=== PATIENT | female | born 1980 | race Caucasian/White ===

== ENCOUNTER 2018-11-25 09:10 | Emergency (ER) | payer MEDICAID, SELFPAY ==
[2018-11-25 09:11] VITALS: BP 137/82; PULSE 105; RESP 16; TEMP 36.7; O2SAT 97; BMI 30.2
[2018-11-25 09:25] LABS: Bedside Glucose 446 mg/dL (70-110)
[2018-11-25] MEDS: 0.9% Normal Saline 1,000 ML 1000 ML IV (09:34)
[2018-11-25 09:42] LABS: Mucous, Urine 0 SEEN /hpf (<or=2+); White Blood Cells 0 SEEN /hpf (0-5)
[2018-11-25 09:47] LABS: Absolute Neutrophil Count 15.4 X10^3/uL (2.0-7.7); Basophil# 0.04 X10^3/uL; Basophil% 0.2 % (0-1); Eosinophil# 0.01 X10^3/uL; Eosinophils% 0.1 % (0-5); Hematocrit 44.7 % (37-47); Hemoglobin 15.6 g/dl (12.0-15.0); Lymphocyte % 16.7 % (19-41); Mean Corp Hgb Conc 34.9 g/gl (32-36); Mean Corpuscular Volume 88.7 fL (81-99); Mean Platelet Vol. 10.9 fl (6.2-12.0); Monocyte% 2.1 % (0-10); Neutrophil # 15.41 X10^3/uL (2.7-7.7); Neutrophil % 80.6 % (47-70); Platelet Count 303 K/mm3 (150-450); RBC Distribution Width CV 12.2 % (11.6-14.6); RBC Distribution Width SD 39.2 fl (35.1-43.9); Red Blood Count 5.04 M/mm3 (4.2-5.4); White Blood Count 19.1 K/mm3 (4.4-11.0)
[2018-11-25 09:48] LABS: Differential Indicated SCAN CRITERIA MET; POSITIVE COUNT NO; POSITIVE DIFFERENTIAL NO; POSITIVE MORPHOLOGY YES
[2018-11-25 09:51] LABS: Color, Urine Yellow (Yellow); Glucose, Dipstick 1000 mg/dl (Normal); Urine Bilirubin Dipstick Negative (Negative); Urine Clarity Sl Cldy (Clear)
[2018-11-25 09:52] LABS: Ketone-Dipstick 150 mg/dl (Negative); Leukocyte Esterase-Dipstick Negative /ul (Negative); Nitrite-Dipstick Negative (Negative); Occult Blood-Urine Negative /ul (Negative); Protein-Dipstick Negative (Negative); Urine Urobilinogen Normal (Normal)
[2018-11-25 09:54] LABS: Internal QC Validated? YES +Cl - CLEAR BKGD; Pregnancy, Urine Negative Negative
[2018-11-25 09:57] LABS: Bacteria RARE /hpf (None Seen); Red Blood Cells-Urine 0-5 SEEN /hpf (0-5); Squamous Epithelial Cells - UA 0-5 SEEN /hpf (5-10)
--- NOTE | 2018-11-25 10:02 | ED.VISSUMM ---
- ER Visit Summary Date of Service: 11/25/18 Chief Complaint: Hyperglycemia History of Present Illness: The patient is a 37 F who presents the emergency room because she ran out of insulin for her insulin pump last night at 1800 hrs. She states her blood sugar was reading high. She states that her conciliation court judge office has insulin for her to come and get it. She states that she vomited is concerned she is in DKA. Physical Examination: Afebrile vital signs are stable Gen: Well-nourished well-developed Head: Normocephalic atraumatic Eyes: Perrl EOMI ENT: TMs clear no rhinorrhea moist mucous membranes Neck: Supple no lymphadenopathy no JVD nontender CVS: Regular rate rhythm no murmurs normal S1-S2 Respiratory: No distress clear to auscultation bilaterally chest nontender Abdomen: Soft nontender nondistended normal bowel sounds no masses Back: Nontender Extremity: Nontender no edema Skin: Normal color no rash Neuro: alert orientated ?3 CN II-XII intact normal strength sensation reflexes gait cerebellar Psych: Normal affect normal mood Test Results: Blood sugar 458. CO2 of 17. Anion gap is 15. White blood cell count 19. Ketones small. Emergency Department Course and Treatment: Patient received IV fluids and insulin. She also received Zofran for nausea vomiting. We have given a total of 2 L of IV fluids as well as 20 units of insulin. She is tolerating p.o. fluids. She is anxious to get to her [facility]ciliation court judge office to get her insulin. At this point she does not have an anion gap. She is tolerating p.o. Her blood sugar is down. Think is very reasonable to send her to get her insulin for her pump. She is comfortable with this plan and will be drinking water for the rest of the day. Return if worsening or concerns. Impression: 1. Diabetic ketoacidosis This note was generated with [employer] dictation software. It may contain incorrect words, spelling, and punctuation that were not noted in review of the chart prior to signing ED Disposition - Plan for ED Patient: Disposition: Home or Assisted Living Instructions: ED Hyperglycemia Diabetic Prescriptions: Ondansetron [Zofran Odt] 4 mg PO Q6H PRN PRN #10 tab PRN Reason: Nausea Additional Instructions: Go to your conciliation court judge office today. Drink plenty of water today Monitor your blood sugars closely
[2018-11-25 10:08] LABS: ALB/GLOB Ratio 1.1 RATIO (0.9-2.4); AST(SGOT) 14 U/L (15-37); Alanine Aminotransfer ALT/SGPT 23 U/L (13-56); Albumin, Serum 4.2 g/dL (3.2-5.0); Alkaline Phosphatase 88 U/L (45-117); Anion Gap 15 (5-15); BUN 22 mg/dL (7-18); BUN/Creat Ratio 21.6 RATIO (10-20); Calcium,Total 8.9 mg/dL (8.5-10.1); Chloride 99 mmol/L (98-107); Creatinine, Serum 1.02 mg/dL (0.55-1.02); EST Glomerular Filtration Rate 65 mL/min (>60); Est Glom Filt Rate - Afr Amer 78 mL/min (>60); Estimated Creatinine Clearance 59.73 ml/min; Globulin 3.8 g/dL (2.2-4.2); Glucose 458 mg/dL (74-106); Potassium 4.4 mmol/L (3.5-5.1); Sodium Level 131 mmol/L (136-145)
--- NOTE | 2018-11-25 10:08 | ED.RN ---
LAB CALL WITH CRITICAL RESULT GLUCOSE OF 458. VERBALLY REPORTED TO DR. VARGAS AND KENYA VENEGAS.
[2018-11-25] MEDS: 0.9% Normal Saline 1,000 ML 999 ML IV (10:27)
[2018-11-25] MEDS: Ondansetron 4 MG/2 ML Vial IV (10:27)
[2018-11-25 10:41] LABS: Bedside Glucose 452 mg/dL (70-110)
[2018-11-25 11:57] VITALS: BP 104/59; PULSE 85; RESP 16; O2SAT 96
[2018-11-25 12:01] LABS: Bedside Glucose 324 mg/dL (70-110)
[2018-11-25 13:06] VITALS: BP 108/65; PULSE 77; RESP 18; O2SAT 99
[2018-11-25 13:06] LABS: Bedside Glucose 220 mg/dL (70-110)
== END 2018-11-25 13:07 | disposition home or self-care (01) ==
PROVIDERS: Emergency Provider Emergency Medicine; PCP Family Medicine
DX: E10.10 Type 1 diabetes mellitus with ketoacidosis without coma (principal); I10 Essential (primary) hypertension; E78.00 Pure hypercholesterolemia, unspecified; J45.909 Unspecified asthma, uncomplicated; Z72.0 Tobacco use; Z79.4 Long term (current) use of insulin
CPT/HCPCS: 80053; 81001; 81025; 82009; 82962; 85025; 99284; J7030; A4216; J2405

== ENCOUNTER 2020-10-20 10:03 | Emergency (ER) | payer MEDICAID, SELFPAY ==
[2020-10-20 10:04] VITALS: BP 139/100; PULSE 77; RESP 16; TEMP 36.6; O2SAT 99; BMI 24.7
--- NOTE | 2020-10-20 10:12 | RAD_ITS ---
STUDY: X-RAY - RIGHT HAND REASON FOR EXAM: Female, 39 years old. right thumb pain after a fall TECHNIQUE: 3 view(s) of the hand. COMPARISON: None. FINDINGS: No acute fracture, dislocation or osseous destruction. No significant joint space narrowing. No significant productive changes. No significant soft tissue swelling. RAD/Hand Min 3 Views IMPRESSION: Right thumb/hand intact Electronically Signed: Alec Aguillon DO at 10:35 EST Tel , Service support ,
[2020-10-20] MEDS: Acetaminophen 500 MG Tablet 1000 MG PO (10:35)
--- NOTE | 2020-10-20 10:42 | ED.DCSUM_ITS ---
- ER Visit Summary Date of Service: 10/20/20 Chief Complaint: Right thumb injury History of Present Illness: The patient is a 39 F who had a mechanical fall yesterday. She injured her right thumb. Concern for fracture, dislocation, or strain. No other injuries or complaints. No other associated symptoms. Pain is severe. Physical Examination: Diffuse right thumb tenderness with light touch. Skin intact. Neurovascular intact. No redness, warmth, or significant swelling noted. Test Results: X-rays reviewed by the radiologist and myself showed no acute abnormalities. No fracture or dislocation. Emergency Department Course and Treatment: Patient had a mechanical fall and complains of right thumb pain. No other injuries. X-rays obtained and were unremarkable. Treated with Tylenol. Will place a Velcro splint, symptomatic care at home. Outpatient follow-up. Treatment Plan: Velcro thumb spica splint, rest, ice, elevate, [id number] remedies for pain. Outpatient follow-up as needed. Disposition: Discharge Impression:. Right thumb pain This note was generated with [employer] dictation software. It may contain incorrect words, spelling, and punctuation that were not noted in review of the chart prior to signing ED Disposition - Plan for ED Patient: Instructions: ED Finger Sprain Referrals: Kim Jo [NON-STAFF] -
[2020-10-20 11:07] VITALS: PULSE 72; RESP 16; O2SAT 100
== END 2020-10-20 11:08 | disposition home or self-care (01) ==
PROVIDERS: Emergency Provider Emergency Medicine; PCP Family Medicine
DX: M79.644 Pain in right finger(s) (principal); W19.XXXA Unspecified fall, initial encounter; Y93.9 Activity, unspecified; Y92.9 Unspecified place or not applicable; Y99.9 Unspecified external cause status
CPT/HCPCS: 73130; 99283

== ENCOUNTER 2020-11-18 19:28 | Emergency (ER) | payer MEDICAID, SELFPAY ==
[2020-11-18 19:29] VITALS: BP 132/80; PULSE 74; RESP 18; TEMP 36.6; O2SAT 99; BMI 25.2
[2020-11-18] MEDS: 0.9% Normal Saline 1,000 ML 999 ML IV (20:13)
[2020-11-18] MEDS: Ketorolac 15 MG/ML Vial IV (20:14)
[2020-11-18] MEDS: Metoclopramide 10 MG/2 ML Vial IV (20:14)
[2020-11-18] MEDS: DiphenhydrAMINE 50 MG/ML Syringe 25 MG IV (20:14)
--- NOTE | 2020-11-18 21:46 | ED.VIS.GEN ---
History of Present Illness Chief Complaint: Headache Narrative: Patient presents with a headache. She has a history of migraines. This feels the same. Last headache was over a year ago however this is the exact same as all her prior headaches. She has no fever chills cough or congestion. No chest pain or shortness of breath. No vision changes. There is some photophobia. Past medical history: Prior migraines Medications: Reviewed Social history: Noncontributory Review of systems: All systems negative except as indicated General: Denies: Fever Eyes: Denies: Visual changes - bilaterally ENT: Denies: Rhinorrhea, Sore throat Cardiovascular: Denies: Chest pain Respiratory: Denies: Dyspnea, Cough Gastrointestinal: Denies: Abdominal pain, Nausea, Vomiting Genitourinary: Denies: Dysuria Musculoskeletal: Denies: Myalgias Skin: Denies: Rash Neurological: Headache as in HPI. No focal deficit no sensory deficits. No confusion. Psych: Reports: negative Hematologic: Denies: Easy bruising, Easy bleeding Physical exam General: She does appear in some distress. Head: Normocephalic, Atraumatic Eyes: Conjunctiva not pale. Pupils are reactive. ENT: Moist mucous membranes Neck: Supple, Nontender, No lymphadenopathy Cardiovascular: Regular rate, Regular rhythm Respiratory: No distress, CTA bilaterally Abdomen: Soft, Nontender, Nondistended Back: Nontender, Normal Inspection. Negative for: CVA tenderness Extremities: Nontender, No edema Skin: Normal color, No rash Neurological: Alert, Normal Strength, Normal Sensation Past Medical History - Allergies and Home Meds Allergies/Adverse Reactions: Allergies latex Allergy (Verified 11/18/20 19:32) Hives naproxen Allergy (Verified 11/18/20 19:32) Hives oseltamivir phosphate [From Tamiflu] Adverse Reaction (Verified 11/18/20 19:32) Other FLU SYSTEMS WORSEN WHEN ON THIS MED Primary Care Physician: Darlene Bass MD [Primary Care Provider] - Surgical History: hysterectomy, tonsillectomy, - - T+A, BL ear tubes, insulin pump placement, uterine ablation, BLTL. recent cholecyst[facility] at [facility] Smoking Status: Current every day smoker - Family History Maternal Family History: Reports: Heart Disease Paternal Family History: Reports: Heart Disease Physical Exam Vital Signs/Narrative: Vital Signs Temp Pulse Resp BP Pulse Ox 11/18/20 19:29 97.9 F 74 18 132/80 H 99 Diagnostic/Tx/Re-eval - Medical Decision Making Patient was given a migraine cocktail. She significantly improved. This is gradual onset of chronic recurrent cephalgia with a normal neurological exam no imaging is needed. Patient will be discharged in stable condition. ED Disposition - Plan for ED Patient: Disposition: Home or Assisted Living Diagnosis: Migraine Instructions: ED Headache Unspecified Referrals: Darlene Bass MD [Primary Care Provider] -
== END 2020-11-18 21:54 | disposition home or self-care (01) ==
PROVIDERS: Emergency Provider Emergency Medicine; PCP Family Medicine
DX: G43.909 Migraine, unspecified, not intractable, without status migrainosus (principal); F17.200 Nicotine dependence, unspecified, uncomplicated; Z79.4 Long term (current) use of insulin; Z82.49 Family history of ischemic heart disease and other diseases of the circulatory system; Z90.710 Acquired absence of both cervix and uterus; Z91.040 Latex allergy status; Z96.41 Presence of insulin pump (external) (internal)
CPT/HCPCS: 96361; 96374; 96375; 99284; J7030; A4216

== ENCOUNTER 2020-12-12 19:17 | Observation (INO) | payer MEDICAID, SELFPAY ==
[2020-12-12] VITALS (8 sets, daily range): BP systolic 109–128; BP diastolic 65–78; PULSE 73–106; RESP 14–18; TEMP 36.6; O2SAT 96–100; BMI 24.7; BMI 25.0
--- NOTE | 2020-12-12 19:32 | EX.ED.DYSGE1 ---
HPI History of Present Illness Chief Complaint: Hyperglycemia Informant: patient Narrative Narrative: 40-year-old female with history of type 1 diabetes on insulin pump states that she has had vomiting since noon and is worried that she is in DKA. She tells me that Sunday was her birthday so her kids took her to a [employer] restaurant where she had a graeme and had a celebratory tequila shot. When she woke on Sunday she had experienced diarrhea and then today around noon began to have vomiting. She states this afternoon her blood sugars were in the 300s. She is left her insulin pump on. She states she cannot control her vomiting. No fevers. No rashes. No blood in vomit or stool. No further diarrhea today PFSH PFSH Medical History (Updated 12/12/20 @ 21:[address] Praveen Quintana DO) Asthma Bipolar disorder Diabetes Hypertension Home Medications Humalog U-100 Insulin 0 unit SQ UD 01/19/16 [History Last Taken Unknown] pravastatin 40 mg PO QHS 04/13/16 [History Last Taken Unknown] lisinopril 1 tab PO DAILY 01/06/17 [History Last Taken Unknown] albuterol sulfate 1 - 2 puff INHALATION Q6H PRN 10/20/20 [History Last Taken Unknown] Allergy/AdvReac Type Severity Reaction Status Date / Time latex Allergy Hives Verified 12/12/20 19:20 naproxen Allergy Hives Verified 12/12/20 19:20 oseltamivir phosphate AdvReac Other Verified 12/12/20 19:20 [From Tamiflu] no surgical history (Noncontributory) Social History (Updated 12/12/20 @ 19:[address] Pravene Quintana DO) Smoking Status: Current every day smoker alcohol intake: current alcohol intake frequency: holidays/special occasions only ROS ROS ED Constitutional Constitutional ED: Denies chills or weight loss Eyes Eyes: Denies change in vision or diplopia ENT ENT ED: Denies ear pain, rhinorrhea or sore throat Cardiovascular Cardiovascular: Denies chest pain, orthopnea, palpitations or racing heartbeat Respiratory/Chest Respiratory/Chest: Denies cough, dyspnea or orthopnea Gastrointestinal Gastrointestinal: Reports diarrhea, nausea and vomiting; Denies abdominal pain Genitourinary Genitourinary ED: Denies dysuria, hematuria or urinary frequency Musculoskeletal Musculoskeletal: Denies arthralgias or myalgias Integumentary Denies abscess or rash Neurologic Neurologic: Denies headache(s) or weakness Psychiatric Psychiatric: Denies anxiety, depression, suicidal ideation or suicidal thoughts Endocrine Endocrinology: Denies polydipsia, polyphagia or polyuria Allergic/Immunologic Allergic/Immunologic ED: Denies mouth swelling, tongue swelling or urticaria EXAM Physical Exam Const Vital Signs: 12/12/20 19:19 12/12/20 19:24 12/12/20 21:11 Temperature 97.9 F Temperature Source Temporal Pulse Rate 106 H 78 Respiratory Rate 18 16 Respiratory Effort Normal Non-Labored Respiratory Pattern Normal Blood Pressure 113/66 122/70 H Blood Pressure Mean 81 87 Pulse Ox 98 98 Oxygen Delivery Method Room Air Room Air Positive well nourished and well developed Constitutional Narrative: Patient is vomiting General Appearance ED: well developed HEENT Reports normocephalic, head/scalp atraumatic and moist mucous membranes Eyes PERRL and EOMs intact bilaterally Neck no lymphadenopathy, supple and no JVD Resp normal respiratory effort and clear to auscultation bilaterally Cardio regular rate, regular rhythm and no murmurs GI normal to inspection, nondistended, normoactive bowel sounds and non-tender Palpation: soft Back/Spine no CVA tenderness and normal ROM Extremity normal to inspection General Extremety ED: Negative for edema General Extremity: Negative for edema Neuro oriented x3 and CN's II-XII intact bilaterally Sensorium / Orientation: alert Motor Exam: strength 5/5 throughout Psych mental status grossly normal Mood & Affect: Negative for depressed or tearful Skin no rashes or lesions noted and no wounds MDM MDM MDM Narrative Medical decision making narrative: Patient received IV fluids and Zofran. Her white count returns at 14.2. Glucose 590 total bilirubin of 1.4. Lipase 100. Moderate acetone in blood. Urinalysis shows no overt infection. There is ketones and glucose. Patient's had no further vomiting. She received a total of 2 L of IV fluids and was started on the insulin drip. Plan will be admission into the ICU. Lab Data Labs: Laboratory Results - last 24 hr 12/12/20 12/12/20 12/12/20 19:43 19:43 19:43 WBC 14.2 H RBC 4.55 Hgb 13.9 Hct 41.6 MCV 91.4 MCH 30.5 MCHC 33.4 RDW Std Deviation 40.4 RDW Coeff of Kenan 12.0 Plt Count 339 MPV 10.8 Immature Gran % (Auto) 0.600 Neut % (Auto) 78.9 H Lymph % (Auto) 14.9 L [place] % (Auto) 4.9 Eos % (Auto) 0.1 Baso % (Auto) 0.6 Absolute Neuts (auto) 11.2 H Absolute Lymphs (auto) 2.12 Nucleated RBC % 0 Sodium 130 L Potassium 4.3 Chloride 97 L Carbon Dioxide 14.0 L Anion Gap 19 H BUN 18 Creatinine 1.02 Estim Creat Clear Calc 57.99 Est GFR (MDRD) Af Amer 77 Est GFR (MDRD) Non-Af 64 BUN/Creatinine Ratio 17.6 Glucose 590 H* Calcium 8.7 Total Bilirubin 1.40 H AST 18 ALT 28 Alkaline Phosphatase 72 Total Protein 7.5 Albumin 4.0 Globulin 3.5 Albumin/Globulin Ratio 1.1 Lipase 100 Urine Color Urine Clarity Urine pH Ur Specific [place] Urine Protein Urine Glucose (UA) Urine Ketones Urine Occult Blood Urine Nitrite Urine Bilirubin Urine Urobilinogen Ur Leukocyte Esterase Urine RBC Urine WBC Ur Squamous Epith Cells Urine Bacteria Urine Mucus Acetone Level MODERATE H 12/12/20 20:15 WBC RBC Hgb Hct MCV MCH MCHC RDW Std Deviation RDW Coeff of Kenan Plt Count MPV Immature Gran % (Auto) Neut % (Auto) Lymph % (Auto) Ralls % (Auto) Eos % (Auto) Baso % (Auto) Absolute Neuts (auto) Absolute Lymphs (auto) Nucleated RBC % Sodium Potassium Chloride Carbon Dioxide Anion Gap BUN Creatinine Estim Creat Clear Calc Est GFR (MDRD) Af Amer Est GFR (MDRD) Non-Af BUN/Creatinine Ratio Glucose Calcium Total Bilirubin AST ALT Alkaline Phosphatase Total Protein Albumin Globulin Albumin/Globulin Ratio Lipase Urine Color Straw Urine Clarity Clear Urine pH 5.0 Ur Specific [place] 1.015 Urine Protein Negative Urine Glucose (UA) 1000 H Urine Ketones 150 A* Urine Occult Blood Negative Urine Nitrite Negative Urine Bilirubin Negative Urine Urobilinogen Normal Ur Leukocyte Esterase Negative Urine RBC 0-5 SEEN Urine WBC 0-5 SEEN Ur Squamous Epith Cells 0-5 SEEN Urine Bacteria 0 SEEN Urine Mucus 0 SEEN Acetone Level Critical Care Time Critical Care Time: Yes Critical care time (excluding procedures): 30-74 minutes (35 minutes), Discussing w/Patient &/or 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
[2020-12-12] MEDS: 0.9% Normal Saline 1,000 ML 1000 ML IV ×2 (19:46→21:07)
[2020-12-12] MEDS: Ondansetron 4 MG/2 ML Vial IV (19:47)
[2020-12-12 19:50] LABS: Absolute Lymphocyte Count 2.12 X10^3/uL (0.83-4.51); Absolute Neutrophil Count 11.2 X10^3/uL (2.0-7.7); Basophil# 0.08 X10^3/uL; Basophil% 0.6 % (0-1); Eosinophil# 0.01 X10^3/uL; Eosinophils% 0.1 % (0-5); Hematocrit 41.6 % (37-47); Hemoglobin 13.9 g/dL (12.0-15.0); Lymphocyte # 2.12 X10^3/ul (0.83-4.51); Lymphocyte % 14.9 % (19-41); Mean Corp Hgb Conc 33.4 g/dL (32-36); Mean Corpuscular Hgb 30.5 pg (27.0-32.0); Mean Corpuscular Volume 91.4 fL (81-99); Mean Platelet Vol. 10.8 fl (6.2-12.0); Monocyte# 0.69 X10^3/uL; Monocyte% 4.9 % (0-10); NRBC Flagged by Analyzer 0 % (0-5); Neutrophil # 11.22 X10^3/uL (2.7-7.7); Neutrophil % 78.9 % (47-70); Platelet Count 339 K/mm3 (150-450); RBC Distribution Width SD 40.4 fl (35.1-43.9); Red Blood Count 4.55 M/mm3 (4.2-5.4); White Blood Count 14.2 K/mm3 (4.4-11.0)
[2020-12-12 20:11] LABS: ALB/GLOB Ratio 1.1 RATIO (0.9-2.4); AST(SGOT) 18 U/L (15-37); Alanine Aminotransfer ALT/SGPT 28 U/L (13-56); Alkaline Phosphatase 72 U/L (45-117); Anion Gap 19 (5-15); BUN 18 mg/dL (7-18); BUN/Creat Ratio 17.6 RATIO (10-20); Calcium,Total 8.7 mg/dL (8.5-10.1); Chloride 97 mmol/L (98-107); Creatinine, Serum 1.02 mg/dL (0.55-1.02); EST Glomerular Filtration Rate 64 mL/min (>60); Est Glom Filt Rate - Afr Amer 77 mL/min (>60); Estimated Creatinine Clearance 57.99 ml/min; Globulin 3.5 g/dL (2.2-4.2); Glucose 590 mg/dL (74-106); Lipase 100 U/L (73-393); Potassium 4.3 mmol/L (3.5-5.1); Protein, Total 7.5 g/dL (6.4-8.2); Sodium Level 130 mmol/L (136-145)
[2020-12-12 20:21] LABS: Bacteria 0 SEEN /hpf (None Seen); Mucous, Urine 0 SEEN /hpf (<or=2+)
[2020-12-12 20:22] LABS: Color, Urine Straw (Yellow); Glucose, Dipstick 1000 mg/dl (Normal); Leukocyte Esterase-Dipstick Negative /ul (Negative); Nitrite-Dipstick Negative (Negative); Occult Blood-Urine Negative /ul (Negative); Protein-Dipstick Negative (Negative); Specific Gravity, Urine 1.015 (1.002-1.030); Urine Bilirubin Dipstick Negative (Negative); Urine Clarity Clear (Clear); Urine Urobilinogen Normal (Normal)
[2020-12-12 20:27] LABS: Ketone-Dipstick 150 mg/dl (Negative)
[2020-12-12 20:33] LABS: Red Blood Cells-Urine 0-5 SEEN /hpf (0-5); Squamous Epithelial Cells - UA 0-5 SEEN /hpf (5-10); White Blood Cells 0-5 SEEN /hpf (0-5)
--- NOTE | 2020-12-12 21:13 | ED.RN ---
PT DECLINED INSERTION OF SECOND IV AT THIS TIME
[2020-12-12 21:25] LABS: Bedside Glucose > 500 mg/dL (70-110)
[2020-12-12 22:30] LABS: Bedside Glucose 359 mg/dL (70-110)
--- NOTE | 2020-12-12 22:31 | PCM.HP.STD ---
HPI - General General Date of Admission: 12/12/20 Chief Complaint: Nausea and vomiting HPI Narrative MATHEUS DODSNO, is a 40 F with a significant history of bipolar disorder; diabetes mellitus; hypertension; and hyperlipidemia who presents to the emergency department with persistent nausea and vomiting that started on the same day of presentation. Associated with her symptoms is abdominal pain that she attributes to retching. Further, patient has been having polyuria and polydipsia. She had a birthday on [birth year]. On her birthday her kids took her to [employer] restaurant where she at chicken quesadilla and rice. Also she had tequila and graeme shot. The next day after her birthday celebration she developed abdominal ache and diarrhea. The diarrhea has since resolved. At the emergency department she was found to have elevated glucose; acidemia and with ketones in her urine. [facility] Medical History (Updated 12/12/20 @ 23:[address] Ismael Colbert MD) Anxiety Asthma Bipolar disorder Depression Diabetes Hypertension Migraines Substance abuse Home Medications Humalog U-100 Insulin 0 unit SQ UD 01/19/16 [History Last Taken Unknown] pravastatin 40 mg PO QHS 04/13/16 [History Last Taken Unknown] lisinopril 1 tab PO DAILY 01/06/17 [History Last Taken Unknown] albuterol sulfate 1 - 2 puff INHALATION Q6H PRN 10/20/20 [History Last Taken Unknown] Allergy/AdvReac Type Severity Reaction Status Date / Time latex Allergy Hives Verified 12/12/20 19:20 naproxen Allergy Hives Verified 12/12/20 19:20 oseltamivir phosphate AdvReac Other Verified 12/12/20 19:20 [From Tamiflu] Family History (Updated 12/12/20 @ 23:[address] Ismael Colbert MD) Other Diabetes Leukemia Thyroid disorder Surgical History (Updated 12/12/20 @ 23:[address] sImael Colbert MD) History of partial hysterectomy Social History (Updated 12/12/20 @ 19:[address] Praveen Quintana DO) Smoking Status: Current every day smoker alcohol intake: current alcohol intake frequency: holidays/special occasions only ROS ROS Narrative 12 point review of system is negative except as stated in HPI. Vital Signs Vital Signs Vital Signs: 12/12/20 19:19 12/12/20 19:24 12/12/20 21:11 Temperature 97.9 F Temperature Source Temporal Pulse Rate 106 H 78 Respiratory Rate 18 16 Respiratory Effort Normal Non-Labored Respiratory Pattern Normal Blood Pressure 113/66 122/70 H Blood Pressure Mean 81 87 Pulse Ox 98 98 Oxygen Delivery Method Room Air Room Air 12/12/20 21:48 Temperature 97.8 F Temperature Source Temporal Pulse Rate 73 Respiratory Rate 14 Respiratory Effort Respiratory Pattern Blood Pressure 128/71 H Blood Pressure Mean 90 Pulse Ox 96 Oxygen Delivery Method Room Air Physical Exam Narrative Alert and oriented x3 Nontraumatic; normocephalic Lung clear to auscultate Heart sounds S1-S2. No murmur, gallop or rubs. Abdomen bowel sounds present soft, nontender nondistended Extremity without edema cyanosis or clubbing. Lab / Micro Data Result Diagrams: 12/12/20 19:43 12/12/20 19:43 Labs: Laboratory Results - last 24 hr 12/12/20 12/12/20 12/12/20 19:43 19:43 19:43 WBC 14.2 H RBC 4.55 Hgb 13.9 Hct 41.6 MCV 91.4 MCH 30.5 MCHC 33.4 RDW Std Deviation 40.4 RDW Coeff of Kenan 12.0 Plt Count 339 MPV 10.8 Immature Gran % (Auto) 0.600 Neut % (Auto) 78.9 H Lymph % (Auto) 14.9 L [place] % (Auto) 4.9 Eos % (Auto) 0.1 Baso % (Auto) 0.6 Absolute Neuts (auto) 11.2 H Absolute Lymphs (auto) 2.12 Nucleated RBC % 0 Sodium 130 L Potassium 4.3 Chloride 97 L Carbon Dioxide 14.0 L Anion Gap 19 H BUN 18 Creatinine 1.02 Estim Creat Clear Calc 57.99 Est GFR (MDRD) Af Amer 77 Est GFR (MDRD) Non-Af 64 BUN/Creatinine Ratio 17.6 Glucose 590 H* Calcium 8.7 Total Bilirubin 1.40 H AST 18 ALT 28 Alkaline Phosphatase 72 Total Protein 7.5 Albumin 4.0 Globulin 3.5 Albumin/Globulin Ratio 1.1 Lipase 100 Urine Color Urine Clarity Urine pH Ur Specific [place] Urine Protein Urine Glucose (UA) Urine Ketones Urine Occult Blood Urine Nitrite Urine Bilirubin Urine Urobilinogen Ur Leukocyte Esterase Urine RBC Urine WBC Ur Squamous Epith Cells Urine Bacteria Urine Mucus Acetone Level MODERATE H POC Glucose 12/12/20 12/12/20 12/12/20 20:15 21:04 22:04 WBC RBC Hgb Hct MCV MCH MCHC RDW Std Deviation RDW Coeff of Kenan Plt Count MPV Immature Gran % (Auto) Neut % (Auto) Lymph % (Auto) [place] % (Auto) Eos % (Auto) Baso % (Auto) Absolute Neuts (auto) Absolute Lymphs (auto) Nucleated RBC % Sodium Potassium Chloride Carbon Dioxide Anion Gap BUN Creatinine Estim Creat Clear Calc Est GFR (MDRD) Af Amer Est GFR (MDRD) Non-Af BUN/Creatinine Ratio Glucose Calcium Total Bilirubin AST ALT Alkaline Phosphatase Total Protein Albumin Globulin Albumin/Globulin Ratio Lipase Urine Color Straw Urine Clarity Clear Urine pH 5.0 Ur Specific [place] 1.015 Urine Protein Negative Urine Glucose (UA) 1000 H Urine Ketones 150 A* Urine Occult Blood Negative Urine Nitrite Negative Urine Bilirubin Negative Urine Urobilinogen Normal Ur Leukocyte Esterase Negative Urine RBC 0-5 SEEN Urine WBC 0-5 SEEN Ur Squamous Epith Cells 0-5 SEEN Urine Bacteria 0 SEEN Urine Mucus 0 SEEN Acetone Level POC Glucose > 500 H* 359 H Assessment & Plan Assessment/Plan (1) DKA, type 1: Status: Acute Qualifiers: Diabetes mellitus complication detail: without coma Qualified Code(s): E10.10 - Type 1 diabetes mellitus with ketoacidosis without coma Plan: The patient reports compliance with home pump. Insulin pump was disconnected at the emergency department. Serum glucose: 590 acetone level : Elevated Anion gap of 19 Sodium 130, Corrected sodium 138 Insulin drip started from emergency department; continue Completed IV bolus of normal saline and normal saline infusion Because of potassium of 4.3 we will start patient on half-normal saline with 20 mEq potassium running at 125 mL's per hour. BMP every 4 hours to calculate anion gap. N.p.o. 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 (2) Gastroenteritis: Status: Acute Code(s): K52.9 - Noninfective gastroenteritis and colitis, unspecified Plan: Supportive treatment with IV fluids and antiemetics. (3) Asthma: Status: Chronic Code(s): J45.909 - Unspecified asthma, uncomplicated Qualifiers: Asthma severity: moderate Asthma persistence: unspecified Asthma complication type: unspecified Qualified Code(s): J45.909 - Unspecified asthma, uncomplicated Plan: Stable as needed albuterol inhalation continued. (4) Hypertension: Status: Chronic Code(s): I10 - Essential (primary) hypertension Qualifiers: Hypertension type: essential hypertension Qualified Code(s): I10 - Essential (primary) hypertension Plan: Stable. Hold home lisinopril while n.p.o. As needed hydralazine ordered. Trend blood pressure and adjust blood pressure medications as necessary. Visit Charges Inpatient E&M: 15835 Init Hosp L3
[2020-12-12 23:16] LABS: Bedside Glucose 254 mg/dL (70-110)
[2020-12-13] VITALS (17 sets, daily range): BP systolic 86–111; BP diastolic 42–78; PULSE 58–78; RESP 15–22; TEMP 36.6–36.8; O2SAT 97–100
[2020-12-13 00:11] LABS: Hemoglobin A1c 9.9 % (3.8-5.6)
[2020-12-13 00:16] LABS: Bedside Glucose 206 mg/dL (70-110)
[2020-12-13 00:31] LABS: Anion Gap 9 (5-15); BUN 15 mg/dL (7-18); BUN/Creat Ratio 19.9 RATIO (10-20); Calcium,Total 7.5 mg/dL (8.5-10.1); Chloride 110 mmol/L (98-107); Creatinine, Serum 0.75 mg/dL (0.55-1.02); EST Glomerular Filtration Rate 91 mL/min (>60); Est Glom Filt Rate - Afr Amer 110 mL/min (>60); Estimated Creatinine Clearance 78.86 ml/min; Glucose 219 mg/dL (74-106); Sodium Level 139 mmol/L (136-145)
[2020-12-13 01:11] LABS: Bedside Glucose 199 mg/dL (70-110)
[2020-12-13 03:06] LABS: Bedside Glucose 141 mg/dL (70-110)
[2020-12-13] MEDS: Dext 5%-0.45% NS 1,000 ML 150 ML IV (03:15)
[2020-12-13 04:18] LABS: Absolute Lymphocyte Count 3.41 X10^3/uL (0.83-4.51); Absolute Neutrophil Count 7.1 X10^3/uL (2.0-7.7); Basophil# 0.05 X10^3/uL; Basophil% 0.4 % (0-1); Eosinophil# 0.02 X10^3/uL; Eosinophils% 0.2 % (0-5); Hematocrit 35.7 % (37-47); Hemoglobin 11.8 g/dL (12.0-15.0); Lymphocyte # 3.41 X10^3/ul (0.83-4.51); Lymphocyte % 30.2 % (19-41); Mean Corp Hgb Conc 33.1 g/dL (32-36); Mean Corpuscular Hgb 30.6 pg (27.0-32.0); Mean Corpuscular Volume 92.5 fL (81-99); Mean Platelet Vol. 10.2 fl (6.2-12.0); Monocyte# 0.73 X10^3/uL; Monocyte% 6.5 % (0-10); NRBC Flagged by Analyzer 0 % (0-5); Neutrophil # 7.05 X10^3/uL (2.7-7.7); Neutrophil % 62.3 % (47-70); Platelet Count 286 K/mm3 (150-450); RBC Distribution Width CV 11.9 % (11.6-14.6); RBC Distribution Width SD 40.5 fl (35.1-43.9); Red Blood Count 3.86 M/mm3 (4.2-5.4); White Blood Count 11.3 K/mm3 (4.4-11.0)
[2020-12-13 04:20] LABS: Bedside Glucose 124 mg/dL (70-110)
[2020-12-13 04:52] LABS: Anion Gap 6 (5-15); BUN 14 mg/dL (7-18); BUN/Creat Ratio 24.3 RATIO (10-20); Calcium,Total 7.5 mg/dL (8.5-10.1); Chloride 111 mmol/L (98-107); Creatinine, Serum 0.58 mg/dL (0.55-1.02); EST Glomerular Filtration Rate 124 mL/min (>60); Est Glom Filt Rate - Afr Amer 150 mL/min (>60); Estimated Creatinine Clearance 101.98 ml/min; Glucose 121 mg/dL (74-106); Potassium 3.9 mmol/L (3.5-5.1); Sodium Level 140 mmol/L (136-145)
[2020-12-13 05:11] LABS: Bedside Glucose 131 mg/dL (70-110)
--- NOTE | 2020-12-13 05:20 | NURSING ---
Insulin gtt DC'd. Pt. resumed home insulin pump at this time. Snack given to pt.
--- NOTE | 2020-12-13 07:39 | PN.HOSP_ITS ---
Objective Data Objective Data Vital Signs: Vital Signs Temp Pulse Resp BP Pulse Ox 98 F 68 19 H 103/66 98 12/13/20 04:00 12/13/20 07:00 12/13/20 07:00 12/13/20 07:00 12/13/20 07:00 Oxygen Delivery Method Room Air Weight: 138 lb 3.2 oz Body Mass Index (BMI) 25.0 Finger Stick Blood Glucose 131 Intake & Output: Intake and Output for Last 24 Hours 12/11/20 12/12/20 12/13/20 23:59 23:59 23:59 Intake Total 1107.44 / 1107.44 Output Total 500 / 500 Balance 607.44 / 607.44 Lab / Micro Data Result Diagrams: 12/13/20 04:10 12/13/20 04:10 Labs: Laboratory Results - last 24 hr 12/12/20 12/12/20 12/12/20 19:43 19:43 19:43 WBC 14.2 H RBC 4.55 Hgb 13.9 Hct 41.6 MCV 91.4 MCH 30.5 MCHC 33.4 RDW Std Deviation 40.4 RDW Coeff of Kenan 12.0 Plt Count 339 MPV 10.8 Immature Gran % (Auto) 0.600 Neut % (Auto) 78.9 H Lymph % (Auto) 14.9 L [place] % (Auto) 4.9 Eos % (Auto) 0.1 Baso % (Auto) 0.6 Absolute Neuts (auto) 11.2 H Absolute Lymphs (auto) 2.12 Nucleated RBC % 0 Sodium 130 L Potassium 4.3 Chloride 97 L Carbon Dioxide 14.0 L Anion Gap 19 H BUN 18 Creatinine 1.02 Estim Creat Clear Calc 57.99 Est GFR (MDRD) Af Amer 77 Est GFR (MDRD) Non-Af 64 BUN/Creatinine Ratio 17.6 Glucose 590 H* Hemoglobin A1c Calcium 8.7 Total Bilirubin 1.40 H AST 18 ALT 28 Alkaline Phosphatase 72 Total Protein 7.5 Albumin 4.0 Globulin 3.5 Albumin/Globulin Ratio 1.1 Lipase 100 Urine Color Urine Clarity Urine pH Ur Specific [place] Urine Protein Urine Glucose (UA) Urine Ketones Urine Occult Blood Urine Nitrite Urine Bilirubin Urine Urobilinogen Ur Leukocyte Esterase Urine RBC Urine WBC Ur Squamous Epith Cells Urine Bacteria Urine Mucus Acetone Level MODERATE H POC Glucose 12/12/20 12/12/20 12/12/20 19:43 20:15 21:04 WBC RBC Hgb Hct MCV MCH MCHC RDW Std Deviation RDW Coeff of Kenan Plt Count MPV Immature Gran % (Auto) Neut % (Auto) Lymph % (Auto) [place] % (Auto) Eos % (Auto) Baso % (Auto) Absolute Neuts (auto) Absolute Lymphs (auto) Nucleated RBC % Sodium Potassium Chloride Carbon Dioxide Anion Gap BUN Creatinine Estim Creat Clear Calc Est GFR (MDRD) Af Amer Est GFR (MDRD) Non-Af BUN/Creatinine Ratio Glucose Hemoglobin A1c 9.9 H Calcium Total Bilirubin AST ALT Alkaline Phosphatase Total Protein Albumin Globulin Albumin/Globulin Ratio Lipase Urine Color Straw Urine Clarity Clear Urine pH 5.0 Ur Specific [place] 1.015 Urine Protein Negative Urine Glucose (UA) 1000 H Urine Ketones 150 A* Urine Occult Blood Negative Urine Nitrite Negative Urine Bilirubin Negative Urine Urobilinogen Normal Ur Leukocyte Esterase Negative Urine RBC 0-5 SEEN Urine WBC 0-5 SEEN Ur Squamous Epith Cells 0-5 SEEN Urine Bacteria 0 SEEN Urine Mucus 0 SEEN Acetone Level POC Glucose > 500 H* 12/12/20 12/12/20 12/13/20 22:04 23:08 00:05 WBC RBC Hgb Hct MCV MCH MCHC RDW Std Deviation RDW Coeff of Kenan Plt Count MPV Immature Gran % (Auto) Neut % (Auto) Lymph % (Auto) [place] % (Auto) Eos % (Auto) Baso % (Auto) Absolute Neuts (auto) Absolute Lymphs (auto) Nucleated RBC % Sodium 139 Potassium 4.0 Chloride 110 H Carbon Dioxide 20.0 L Anion Gap 9 BUN 15 Creatinine 0.75 Estim Creat Clear Calc 78.86 Est GFR (MDRD) Af Amer 110 Est GFR (MDRD) Non-Af 91 BUN/Creatinine Ratio 19.9 Glucose 219 H Hemoglobin A1c Calcium 7.5 L Total Bilirubin AST ALT Alkaline Phosphatase Total Protein Albumin Globulin Albumin/Globulin Ratio Lipase Urine Color Urine Clarity Urine pH Ur Specific [place] Urine Protein Urine Glucose (UA) Urine Ketones Urine Occult Blood Urine Nitrite Urine Bilirubin Urine Urobilinogen Ur Leukocyte Esterase Urine RBC Urine WBC Ur Squamous Epith Cells Urine Bacteria Urine Mucus Acetone Level POC Glucose 359 H 254 H 12/13/20 12/13/20 12/13/20 00:05 01:07 02:59 WBC RBC Hgb Hct MCV MCH MCHC RDW Std Deviation RDW Coeff of Kenan Plt Count MPV Immature Gran % (Auto) Neut % (Auto) Lymph % (Auto) [place] % (Auto) Eos % (Auto) Baso % (Auto) Absolute Neuts (auto) Absolute Lymphs (auto) Nucleated RBC % Sodium Potassium Chloride Carbon Dioxide Anion Gap BUN Creatinine Estim Creat Clear Calc Est GFR (MDRD) Af Amer Est GFR (MDRD) Non-Af BUN/Creatinine Ratio Glucose Hemoglobin A1c Calcium Total Bilirubin AST ALT Alkaline Phosphatase Total Protein Albumin Globulin Albumin/Globulin Ratio Lipase Urine Color Urine Clarity Urine pH Ur Specific [place] Urine Protein Urine Glucose (UA) Urine Ketones Urine Occult Blood Urine Nitrite Urine Bilirubin Urine Urobilinogen Ur Leukocyte Esterase Urine RBC Urine WBC Ur Squamous Epith Cells Urine Bacteria Urine Mucus Acetone Level POC Glucose 206 H 199 H 141 H 12/13/20 12/13/20 12/13/20 04:10 04:10 04:12 WBC 11.3 H RBC 3.86 L Hgb 11.8 L Hct 35.7 L MCV 92.5 MCH 30.6 MCHC 33.1 RDW Std Deviation 40.5 RDW Coeff of Kenan 11.9 Plt Count 286 MPV 10.2 Immature Gran % (Auto) 0.400 Neut % (Auto) 62.3 Lymph % (Auto) 30.2 [place] % (Auto) 6.5 Eos % (Auto) 0.2 Baso % (Auto) 0.4 Absolute Neuts (auto) 7.1 Absolute Lymphs (auto) 3.41 Nucleated RBC % 0 Sodium 140 Potassium 3.9 Chloride 111 H Carbon Dioxide 23.0 Anion Gap 6 BUN 14 Creatinine 0.58 Estim Creat Clear Calc 101.98 Est GFR (MDRD) Af Amer 150 Est GFR (MDRD) Non-Af 124 BUN/Creatinine Ratio 24.3 H Glucose 121 H Hemoglobin A1c Calcium 7.5 L Total Bilirubin AST ALT Alkaline Phosphatase Total Protein Albumin Globulin Albumin/Globulin Ratio Lipase Urine Color Urine Clarity Urine pH Ur Specific [place] Urine Protein Urine Glucose (UA) Urine Ketones Urine Occult Blood Urine Nitrite Urine Bilirubin Urine Urobilinogen Ur Leukocyte Esterase Urine RBC Urine WBC Ur Squamous Epith Cells Urine Bacteria Urine Mucus Acetone Level POC Glucose 124 H 12/13/20 05:03 WBC RBC Hgb Hct MCV MCH MCHC RDW Std Deviation RDW Coeff of Kenan Plt Count MPV Immature Gran % (Auto) Neut % (Auto) Lymph % (Auto) [place] % (Auto) Eos % (Auto) Baso % (Auto) Absolute Neuts (auto) Absolute Lymphs (auto) Nucleated RBC % Sodium Potassium Chloride Carbon Dioxide Anion Gap BUN Creatinine Estim Creat Clear Calc Est GFR (MDRD) Af Amer Est GFR (MDRD) Non-Af BUN/Creatinine Ratio Glucose Hemoglobin A1c Calcium Total Bilirubin AST ALT Alkaline Phosphatase Total Protein Albumin Globulin Albumin/Globulin Ratio Lipase Urine Color Urine Clarity Urine pH Ur Specific [place] Urine Protein Urine Glucose (UA) Urine Ketones Urine Occult Blood Urine Nitrite Urine Bilirubin Urine Urobilinogen Ur Leukocyte Esterase Urine RBC Urine WBC Ur Squamous Epith Cells Urine Bacteria Urine Mucus Acetone Level POC Glucose 131 H
[2020-12-13 08:41] LABS: Bedside Glucose 218 mg/dL (70-110)
--- NOTE | 2020-12-13 10:22 | PCM.DC.SUM ---
Providers Date of Admission: 12/12/20 Primary Care Physician: Dr. Darlene Bass MD Consultations 12/12/20 23:19 Consult: Chief Optometry Service / Pulmonary Medicine Routine Consulting Provider: Pulmonary Medicine nanci Zelaya Reason for Consult: critical care EMERGENT Consult: No MD Notified: Yes Date Notified:: 12/12/20 Time Notified: 23:19 Method of Notification: Text Reason For Visit: DKA Diagnosis Discharge Diagnosis (1) DKA, type 1: Status: Acute Qualifiers: Diabetes mellitus complication detail: without coma Qualified Code(s): E10.10 - Type 1 diabetes mellitus with ketoacidosis without coma (2) Gastroenteritis: Status: Acute Code(s): K52.9 - Noninfective gastroenteritis and colitis, unspecified (3) Asthma: Status: Chronic Code(s): J45.909 - Unspecified asthma, uncomplicated Qualifiers: Asthma complication type: unspecified Asthma persistence: unspecified Asthma severity: moderate Qualified Code(s): J45.909 - Unspecified asthma, uncomplicated (4) Hypertension: Status: Chronic Code(s): I10 - Essential (primary) hypertension Qualifiers: Hypertension type: essential hypertension Qualified Code(s): I10 - Essential (primary) hypertension Medications at Discharge Home Medications Humalog U-100 Insulin 0 unit SQ UD 01/19/16 pravastatin 40 mg PO QHS 04/13/16 lisinopril 1 tab PO DAILY 01/06/17 albuterol sulfate 1 - 2 puff INHALATION Q6H PRN 10/20/20 Hospital Course Summary of Care Provided Minutes Spent on Discharge: 35 Hospital Course: Patient is a 40-year-old lady with past medical history segment for diabetes mellitus type 1 who presented with nausea and vomiting. Patient assessment was consistent with diabetic ketoacidosis. Patient was admitted to the intensive care unit she was managed with IV fluids correction of electrolytes and serial monitoring of glucose levels as well as electrolyte. Patient DKA did resolve was discharged in a day after her admission. Physical Exam Narrative GENERAL: cooperative HEENT: Atraumatic; EYES; Anicteric, Normal Conjunctiva NECK; supple, normal thyroid, RESPIRATORY: Diminished to auscultation CARDIOVASCULAR: Regular S1 S2, SKIN: No Rash PSYCH; Flat affect ABG / Lab / Microbiology Data Result Diagrams: 12/13/20 04:10 12/13/20 04:10 Laboratory: Laboratory Results - last 24 hr 12/12/20 12/12/20 12/12/20 19:43 19:43 19:43 WBC 14.2 H RBC 4.55 Hgb 13.9 Hct 41.6 MCV 91.4 MCH 30.5 MCHC 33.4 RDW Std Deviation 40.4 RDW Coeff of Kenan 12.0 Plt Count 339 MPV 10.8 Immature Gran % (Auto) 0.600 Neut % (Auto) 78.9 H Lymph % (Auto) 14.9 L [place] % (Auto) 4.9 Eos % (Auto) 0.1 Baso % (Auto) 0.6 Absolute Neuts (auto) 11.2 H Absolute Lymphs (auto) 2.12 Nucleated RBC % 0 Sodium 130 L Potassium 4.3 Chloride 97 L Carbon Dioxide 14.0 L Anion Gap 19 H BUN 18 Creatinine 1.02 Estim Creat Clear Calc 57.99 Est GFR (MDRD) Af Amer 77 Est GFR (MDRD) Non-Af 64 BUN/Creatinine Ratio 17.6 Glucose 590 H* Hemoglobin A1c Calcium 8.7 Total Bilirubin 1.40 H AST 18 ALT 28 Alkaline Phosphatase 72 Total Protein 7.5 Albumin 4.0 Globulin 3.5 Albumin/Globulin Ratio 1.1 Lipase 100 Urine Color Urine Clarity Urine pH Ur Specific [place] Urine Protein Urine Glucose (UA) Urine Ketones Urine Occult Blood Urine Nitrite Urine Bilirubin Urine Urobilinogen Ur Leukocyte Esterase Urine RBC Urine WBC Ur Squamous Epith Cells Urine Bacteria Urine Mucus Acetone Level MODERATE H POC Glucose 12/12/20 12/12/20 12/12/20 19:43 20:15 21:04 WBC RBC Hgb Hct MCV MCH MCHC RDW Std Deviation RDW Coeff of Kenan Plt Count MPV Immature Gran % (Auto) Neut % (Auto) Lymph % (Auto) [place] % (Auto) Eos % (Auto) Baso % (Auto) Absolute Neuts (auto) Absolute Lymphs (auto) Nucleated RBC % Sodium Potassium Chloride Carbon Dioxide Anion Gap BUN Creatinine Estim Creat Clear Calc Est GFR (MDRD) Af Amer Est GFR (MDRD) Non-Af BUN/Creatinine Ratio Glucose Hemoglobin A1c 9.9 H Calcium Total Bilirubin AST ALT Alkaline Phosphatase Total Protein Albumin Globulin Albumin/Globulin Ratio Lipase Urine Color Straw Urine Clarity Clear Urine pH 5.0 Ur Specific [place] 1.015 Urine Protein Negative Urine Glucose (UA) 1000 H Urine Ketones 150 A* Urine Occult Blood Negative Urine Nitrite Negative Urine Bilirubin Negative Urine Urobilinogen Normal Ur Leukocyte Esterase Negative Urine RBC 0-5 SEEN Urine WBC 0-5 SEEN Ur Squamous Epith Cells 0-5 SEEN Urine Bacteria 0 SEEN Urine Mucus 0 SEEN Acetone Level POC Glucose > 500 H* 12/12/20 12/12/20 12/13/20 22:04 23:08 00:05 WBC RBC Hgb Hct MCV MCH MCHC RDW Std Deviation RDW Coeff of Kenan Plt Count MPV Immature Gran % (Auto) Neut % (Auto) Lymph % (Auto) [place] % (Auto) Eos % (Auto) Baso % (Auto) Absolute Neuts (auto) Absolute Lymphs (auto) Nucleated RBC % Sodium 139 Potassium 4.0 Chloride 110 H Carbon Dioxide 20.0 L Anion Gap 9 BUN 15 Creatinine 0.75 Estim Creat Clear Calc 78.86 Est GFR (MDRD) Af Amer 110 Est GFR (MDRD) Non-Af 91 BUN/Creatinine Ratio 19.9 Glucose 219 H Hemoglobin A1c Calcium 7.5 L Total Bilirubin AST ALT Alkaline Phosphatase Total Protein Albumin Globulin Albumin/Globulin Ratio Lipase Urine Color Urine Clarity Urine pH Ur Specific [place] Urine Protein Urine Glucose (UA) Urine Ketones Urine Occult Blood Urine Nitrite Urine Bilirubin Urine Urobilinogen Ur Leukocyte Esterase Urine RBC Urine WBC Ur Squamous Epith Cells Urine Bacteria Urine Mucus Acetone Level POC Glucose 359 H 254 H 12/13/20 12/13/20 12/13/20 00:05 01:07 02:59 WBC RBC Hgb Hct MCV MCH MCHC RDW Std Deviation RDW Coeff of Kenan Plt Count MPV Immature Gran % (Auto) Neut % (Auto) Lymph % (Auto) [place] % (Auto) Eos % (Auto) Baso % (Auto) Absolute Neuts (auto) Absolute Lymphs (auto) Nucleated RBC % Sodium Potassium Chloride Carbon Dioxide Anion Gap BUN Creatinine Estim Creat Clear Calc Est GFR (MDRD) Af Amer Est GFR (MDRD) Non-Af BUN/Creatinine Ratio Glucose Hemoglobin A1c Calcium Total Bilirubin AST ALT Alkaline Phosphatase Total Protein Albumin Globulin Albumin/Globulin Ratio Lipase Urine Color Urine Clarity Urine pH Ur Specific [place] Urine Protein Urine Glucose (UA) Urine Ketones Urine Occult Blood Urine Nitrite Urine Bilirubin Urine Urobilinogen Ur Leukocyte Esterase Urine RBC Urine WBC Ur Squamous Epith Cells Urine Bacteria Urine Mucus Acetone Level POC Glucose 206 H 199 H 141 H 12/13/20 12/13/20 12/13/20 04:10 04:10 04:12 WBC 11.3 H RBC 3.86 L Hgb 11.8 L Hct 35.7 L MCV 92.5 MCH 30.6 MCHC 33.1 RDW Std Deviation 40.5 RDW Coeff of Kenan 11.9 Plt Count 286 MPV 10.2 Immature Gran % (Auto) 0.400 Neut % (Auto) 62.3 Lymph % (Auto) 30.2 [place] % (Auto) 6.5 Eos % (Auto) 0.2 Baso % (Auto) 0.4 Absolute Neuts (auto) 7.1 Absolute Lymphs (auto) 3.41 Nucleated RBC % 0 Sodium 140 Potassium 3.9 Chloride 111 H Carbon Dioxide 23.0 Anion Gap 6 BUN 14 Creatinine 0.58 Estim Creat Clear Calc 101.98 Est GFR (MDRD) Af Amer 150 Est GFR (MDRD) Non-Af 124 BUN/Creatinine Ratio 24.3 H Glucose 121 H Hemoglobin A1c Calcium 7.5 L Total Bilirubin AST ALT Alkaline Phosphatase Total Protein Albumin Globulin Albumin/Globulin Ratio Lipase Urine Color Urine Clarity Urine pH Ur Specific [place] Urine Protein Urine Glucose (UA) Urine Ketones Urine Occult Blood Urine Nitrite Urine Bilirubin Urine Urobilinogen Ur Leukocyte Esterase Urine RBC Urine WBC Ur Squamous Epith Cells Urine Bacteria Urine Mucus Acetone Level POC Glucose 124 H 12/13/20 12/13/20 05:03 08:33 WBC RBC Hgb Hct MCV MCH MCHC RDW Std Deviation RDW Coeff of Kenan Plt Count MPV Immature Gran % (Auto) Neut % (Auto) Lymph % (Auto) [place] % (Auto) Eos % (Auto) Baso % (Auto) Absolute Neuts (auto) Absolute Lymphs (auto) Nucleated RBC % Sodium Potassium Chloride Carbon Dioxide Anion Gap BUN Creatinine Estim Creat Clear Calc Est GFR (MDRD) Af Amer Est GFR (MDRD) Non-Af BUN/Creatinine Ratio Glucose Hemoglobin A1c Calcium Total Bilirubin AST ALT Alkaline Phosphatase Total Protein Albumin Globulin Albumin/Globulin Ratio Lipase Urine Color Urine Clarity Urine pH Ur Specific [place] Urine Protein Urine Glucose (UA) Urine Ketones Urine Occult Blood Urine Nitrite Urine Bilirubin Urine Urobilinogen Ur Leukocyte Esterase Urine RBC Urine WBC Ur Squamous Epith Cells Urine Bacteria Urine Mucus Acetone Level POC Glucose 131 H 218 H Meaningful Use Info Meaningful Use Diagnoses (Choose all that apply): None applicable Discharge Plan Admission Admit Date/Time: 12/12/20 22:27 Primary Reason for Your Visit: Diabetic ketoacidosis Attending Provider: Lopez Dueñas Primary Care Provider: Darlene Bass Consulting Providers: Audi Preciado ; Markie Roberts ; Thea Mojica DIGITAL FORENSIC ANALYST Discharge Orders/Prescriptions Prescriptions: No Action Humalog U-100 Insulin 100 UNIT/ML cartridge 0 unit SQ UD RF: 0 pravastatin 20 MG tablet 40 mg PO QHS RF: 0 lisinopril 5 MG tablet 1 tab PO DAILY RF: 0 albuterol sulfate 1 PUFF inhaler 1 - 2 puff INHALATION Q6H PRN (Reason: Sob &/Or Wheezing) RF: 0 Referrals: Darlene Bass MD [Primary Care Provider] - Disposition Disposition (needs filled in before D/C Order can be placed): Home, self care Visit Charges Inpatient E&M: 16054 Disch Hosp
--- NOTE | 2020-12-13 10:30 | CASEMGMT ---
KENYA CASTRO assessment: Face to Face with patient for initial transition planning/care coordination assessment. KENYA CASTRO introduced self and role at [facility], pt voices understanding and consents to assessment. Pt is sitting up in chair in no distress. Pt is A/Ox4 and answers all questions appropriately. Care providers, pharmacy, and demographics verified. Presentation: Pt is type 1 DM and has been vomiting with sugar in the 300's Admitting dx: DKA PCP: [facility]: kourtney Espinal at [facility] Preferred Pharmacy: [facility] Insurance: [employer] Prescription Benefit: [employer] Living Will/HPOA: Pt states has LW/HPOA and is aware that they are not on file at [facility]. Pt states her HPOA is Sherri Pradhan. LNOK: Sherri Pradhan, sister/HPOA, Bessie Martínez, sister Living Arrangements: Pt states is currently living with her mother in a home and states no concerns at home. Pt is independent with ADL's. Transportation: Pt states drives self and states no transportation concerns. DME/HHC: Pt states has an insulin pump and states no need for any further DME. Pt states no hx of HHC or SNF. Pt states no concerns with going home at time of discharge. 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 Pt states smokes about a pack of cigarettes every 2.5 days and rarely drinks ETOH. Pt states no further concerns/needs. CM to follow for any further discharge planning/needs. Advised pt to ask for CM if any further questions/concerns/needs arise, voices understanding. Pt Goal: Home Plan: Home [place] KENYA CASTRO
[2020-12-13 12:16] LABS: Bedside Glucose 220 mg/dL (70-110)
--- NOTE | 2020-12-13 13:15 | DCINST_ITS ---
Discharge Instructions Outpatient Procedure Reason For Visit: DKA Diet Discharge Diet: 1800 Calorie Control Diet Activity Discharge Activity: Return to Normal Activity Follow Up Care Test Results: Test results from this visit will be discussed in further detail at your follow-up appointment, if applicable. Discharge Plan Admission Admit Date/Time: 12/12/20 22:27 Primary Reason for Your Visit: Diabetic ketoacidosis Attending Provider: Lopez Dueñas Primary Care Provider: Darlene Bass Consulting Providers: Audi Preciado ; Markie Roberts ; Thea Mojica SOLID WASTE FACILITY OPERATOR Instructions Patient Instructions: Diabetes: Understanding Carbohydrates, Diabetes: Activity Tips Discharge Orders/Prescriptions Prescriptions: Continued Humalog U-100 Insulin 100 UNIT/ML cartridge 0 unit SQ UD RF: 0 pravastatin 20 MG tablet 40 mg PO QHS RF: 0 lisinopril 5 MG tablet 1 tab PO DAILY RF: 0 albuterol sulfate 1 PUFF inhaler 1 - 2 puff INHALATION Q6H PRN (Reason: Sob &/Or Wheezing) RF: 0 Referrals: Darlene Bass MD [Primary Care Provider] - Disposition Disposition (needs filled in before D/C Order can be placed): Home, self care
--- NOTE | 2020-12-14 15:16 | CASEMGMT ---
RN CM Discharge F/U Phone Call LACE: 11 Strata: 3 Discharge date: 12/13/20 Call date: 12/14/20 Call time: 1516 Attempted to reach pt without success, message left for pt to call this RN CM back if/when able. [place] RN CM Admission dx: DKA
== END 2020-12-13 14:14 | disposition home or self-care (01) ==
LOC: ED 21:16 → ICU 12-13 02:29
PROVIDERS: Admitting Provider Hospitalist; Emergency Provider Emergency Medicine; PCP Family Medicine; Visit Provider Internal Medicine
DX: E10.10 Type 1 diabetes mellitus with ketoacidosis without coma (principal); I10 Essential (primary) hypertension; J45.909 Unspecified asthma, uncomplicated; K52.9 Noninfective gastroenteritis and colitis, unspecified; Z79.899 Other long term (current) drug therapy; Z96.41 Presence of insulin pump (external) (internal); F17.200 Nicotine dependence, unspecified, uncomplicated; E78.5 Hyperlipidemia, unspecified
CPT/HCPCS: 80048; 80053; 81001; 82009; 82962; 83036; 83690; 85025; 96361; 96374; 97802; 99218; 99284; J7030; A4216; G0378; J2405; J7799

== ENCOUNTER 2020-12-16 13:23 | Observation (INO) | payer MEDICAID, SELFPAY ==
[2020-12-12 22:20] VITALS: BMI 25.0
[2020-12-16] VITALS (13 sets, daily range): BP systolic 95–199; BP diastolic 41–66; PULSE 88–110; RESP 16–24; TEMP 36.8–37.7; O2SAT 96–99; BMI 25.8; BMI 24.5
--- NOTE | 2020-12-16 13:46 | RAD_ITS ---
HISTORY: cough EXAMINATION/TECHNIQUE: XR Chest 1 View: 1 view COMPARISON: 09/04/14 FINDINGS: LINES/DEVICES: None. LUNGS: No consolidation, edema or effusion. No pneumothorax. MEDIASTINUM AND CARDIOVASCULAR STRUCTURES: Cardiac silhouette not enlarged. Central airways and mediastinal contour are unremarkable. BONES AND SOFT TISSUES: No acute bony abnormalities. RAD/Chest 1 View (Portable) IMPRESSION: No radiographic evidence of acute cardiopulmonary disease. at 1632 Reported and signed by: Jacek Garcia MD Electronically Signed: Jacek Garcia MD at 16:31 EDT Tel , Service support ,
--- NOTE | 2020-12-16 13:47 | EKG12_ITS ---
Test Reason : DKA Blood Pressure : / mmHG Vent. Rate : 104 BPM Atrial Rate : 104 BPM P-R Int : 124 ms QRS Dur : 082 ms QT Int : 358 ms P-R-T Axes : 080 053 064 degrees QTc Int : 470 ms Sinus tachycardia Biatrial enlargement Nonspecific ST abnormality Abnormal ECG Confirmed by LINSEY MARTINEZ, EDA ([id number]), editor greeting card PERFECTO LE ([id number]) on 12/20/2020 12:38:21 PM Referred By: MASSIMO Confirmed By:EDA STILES MD
--- NOTE | 2020-12-16 13:51 | EX.ED.DYSGE1 ---
HPI History of Present Illness Chief Complaint: Hyperglycemia Informant: patient and family Onset/Context/Timing Onset: Yesterday Context: Gradual Onset Timing: Continuous Current Severity: Moderate Maximum Severity: Moderate Narrative Narrative: The patient is a 40-year-old female with medical history significant for bipolar disorder and insulin-dependent diabetes who presents to the emergency department nausea and vomiting. Patient states she has an insulin pump. She thinks that it is working appropriately. She states that her sugars however have been running in the 5-6 100s. She does admit to some chills, nausea, vomiting, and generalized fatigue. She was recently admitted for DKA. She states that she was feeling better and has been improved except for the past 24 hours. She does admit to some urinary frequency. She has some abdominal pain, but only with vomiting. Prior similar symptoms: Yes Recent Illness/Hospitalization: Yes PFSH PFSH Medical History Anxiety Asthma Bipolar disorder Depression Diabetes Hypertension Migraines Substance abuse Home Medications Humalog U-100 Insulin 0 unit SQ UD 01/19/16 [History Last Taken 12/16/20] lisinopril 5 mg PO DAILY 01/06/17 [History Last Taken Unknown] albuterol sulfate 1 - 2 puff INHALATION Q6H PRN 10/20/20 [History Last Taken Unknown] fluticasone propionate 2 spray INTRANASAL DAILY 12/16/20 [History Last Taken Unknown] pravastatin 40 mg PO QHS 12/16/20 [History Last Taken Unknown] Allergy/AdvReac Type Severity Reaction Status Date / Time latex Allergy Hives Verified 12/16/20 13:24 naproxen Allergy Hives Verified 12/16/20 13:24 oseltamivir phosphate AdvReac Other Verified 12/16/20 13:24 [From Tamiflu] Family History Other Diabetes Leukemia Thyroid disorder Surgical History History of partial hysterectomy Social History Smoking Status: Current every day smoker alcohol intake: current alcohol intake frequency: holidays/special occasions only ROS ROS ED Constitutional Constitutional ED: Reports chills Eyes Eyes: Denies blurry vision or change in vision ENT ENT ED: Denies ear pain or sore throat Cardiovascular Cardiovascular: Denies chest pain or palpitations Respiratory/Chest Respiratory/Chest: Denies cough, dyspnea or dyspnea on exertion Gastrointestinal Gastrointestinal: Reports abdominal pain, nausea and vomiting Genitourinary Genitourinary ED: Reports urinary frequency Musculoskeletal Musculoskeletal: Denies arthralgias or myalgias Integumentary Denies rash Neurologic Neurologic: Denies headache(s) or paresthesias Psychiatric Psychiatric: Denies anxiety or depression Endocrine Endocrinology: Denies polydipsia or polyuria Allergic/Immunologic Allergic/Immunologic ED: Denies urticaria EXAM Physical Exam Const Vital Signs: 12/16/20 13:26 12/16/20 14:35 12/16/20 14:39 Temperature 99.8 F H Temperature Source Temporal Pulse Rate 110 H Respiratory Rate 24 H Respiratory Effort Normal Respiratory Pattern Normal Blood Pressure 114/61 106/51 L Blood Pressure Mean 78 69 Pulse Ox 98 Oxygen Delivery Method Room Air Positive well nourished and well developed General Appearance ED: well developed HEENT Reports normocephalic, head/scalp atraumatic and moist mucous membranes Eyes PERRL and EOMs intact bilaterally Neck no lymphadenopathy and supple General: Negative for tenderness Chest Wall inspection of chest normal Resp normal respiratory effort and clear to auscultation bilaterally Cardio regular rate, regular rhythm and no murmurs GI normal to inspection, nondistended, normoactive bowel sounds Palpation: Negative for tender, guarding or rebound tenderness present Back/Spine no CVA tenderness Cervical Spine: Negative for cervical spine tenderness Thoracic Spine / Upper Back: Negative for thoracic spinal tenderness Extremity normal to inspection General Extremety ED: Negative for tenderness Neuro oriented x3 and CN's II-XII intact bilaterally Neuro Narrative: No focal deficits appreciated. Sensorium / Orientation: alert Psych mental status grossly normal Skin no rashes or lesions noted, no wounds and skin turgor normal MDM MDM MDM Narrative Medical decision making narrative: Patient presents with symptoms of DKA. She does have an insulin pump. She thinks that it is functioning, but her blood sugars been running 500-600. My suspicion is that her is likely pump failure. IV was established. She was given large boluses of fluids. We did have difficulty obtaining blood work. Her labs do show elevated anion gap and decreased bicarb. She has small serum ketones. She will be started on IV insulin ip and continued on hydration. The patient will be admitted at this time. Impression 1. DKA 2. Nausea and vomiting Lab Data Attestation: I reviewed the patient's lab results. Labs: Laboratory Results - last 24 hr 12/16/20 12/16/20 12/16/20 13:57 16:30 16:30 WBC 15.2 H RBC 4.00 L Hgb 12.3 Hct 38.4 MCV 96.0 MCH 30.8 MCHC 32.0 RDW Std Deviation 42.6 RDW Coeff of Kenan 12.2 Plt Count 264 MPV 10.8 Immature Gran % (Auto) 0.600 Neut % (Auto) 85.6 H Lymph % (Auto) 9.2 L Sargent % (Auto) 4.2 Eos % (Auto) 0.1 Baso % (Auto) 0.3 Absolute Neuts (auto) 13.0 H Absolute Lymphs (auto) 1.39 Nucleated RBC % 0 Sodium 137 Potassium 5.5 H Chloride 106 Carbon Dioxide 10.0 L Anion Gap 21 H BUN 14 Creatinine 0.98 Estim Creat Clear Calc 57.58 Est GFR (MDRD) Af Amer 81 Est GFR (MDRD) Non-Af 67 BUN/Creatinine Ratio 14.3 Glucose 487 H* Calcium 8.2 L Total Bilirubin 0.50 AST 12 L ALT 27 Alkaline Phosphatase 65 Total Protein 6.7 Albumin 3.8 Globulin 2.9 Albumin/Globulin Ratio 1.3 Lipase 176 Urine Color Straw Urine Clarity Clear Urine pH 5.0 Ur Specific [place] 1.015 Urine Protein Negative Urine Glucose (UA) 1000 H Urine Ketones 150 A* Urine Occult Blood Negative Urine Nitrite Negative Urine Bilirubin Negative Urine Urobilinogen Normal Ur Leukocyte Esterase Negative Urine RBC 0 SEEN Urine WBC 0 SEEN Ur Squamous Epith Cells 0-5 SEEN Urine Bacteria 0 SEEN Urine Mucus 0 SEEN Acetone Level 12/16/20 16:30 WBC RBC Hgb Hct MCV MCH MCHC RDW Std Deviation RDW Coeff of Kenan Plt Count MPV Immature Gran % (Auto) Neut % (Auto) Lymph % (Auto) Sargent % (Auto) Eos % (Auto) Baso % (Auto) Absolute Neuts (auto) Absolute Lymphs (auto) Nucleated RBC % Sodium Potassium Chloride Carbon Dioxide Anion Gap BUN Creatinine Estim Creat Clear Calc Est GFR (MDRD) Af Amer Est GFR (MDRD) Non-Af BUN/Creatinine Ratio Glucose Calcium Total Bilirubin AST ALT Alkaline Phosphatase Total Protein Albumin Globulin Albumin/Globulin Ratio Lipase Urine Color Urine Clarity Urine pH Ur Specific [place] Urine Protein Urine Glucose (UA) Urine Ketones Urine Occult Blood Urine Nitrite Urine Bilirubin Urine Urobilinogen Ur Leukocyte Esterase Urine RBC Urine WBC Ur Squamous Epith Cells Urine Bacteria Urine Mucus Acetone Level SMALL H Radiography Chest X-Ray - ED: 1 View, Read by ED Physician, Unchanged, Normal, Heart, Lungs, Mediastinum, Bony Structures and No Acute Disease Diagnostic Testing: Radiology Impression Chest X-Ray 12/16/20 13:46 IMPRESSION: No radiographic evidence of acute cardiopulmonary disease. at 1632 Reported and signed by: Jacek Garcia MD Electronically Signed: Jacek Garcia MD at 16:31 EDT Tel , Service support , Discharge Plan Triage Chief Complaint: Hyperglycemia ED Provider: Heri Jarrell Dx/Rx/DC Orders Prescriptions: No Action Humalog U-100 Insulin 100 UNIT/ML cartridge 0 unit SQ UD RF: 0 lisinopril 5 MG tablet 5 mg PO DAILY RF: 0 albuterol sulfate 1 PUFF inhaler 1 - 2 puff INHALATION Q6H PRN (Reason: Sob &/Or Wheezing) RF: 0 pravastatin 40 mg tablet 40 mg PO QHS RF: 0 fluticasone propionate 50 mcg/actuation spray,suspension 2 spray INTRANASAL DAILY RF: 0 Primary Care Provider: Darlene Bass
[2020-12-16 14:06] LABS: Bacteria 0 SEEN /hpf (None Seen); Mucous, Urine 0 SEEN /hpf (<or=2+); Red Blood Cells-Urine 0 SEEN /hpf (0-5); White Blood Cells 0 SEEN /hpf (0-5)
[2020-12-16 14:08] LABS: Color, Urine Straw (Yellow); Glucose, Dipstick 1000 mg/dl (Normal); Leukocyte Esterase-Dipstick Negative /ul (Negative); Nitrite-Dipstick Negative (Negative); Occult Blood-Urine Negative /ul (Negative); Protein-Dipstick Negative (Negative); Specific Gravity, Urine 1.015 (1.002-1.030); Urine Bilirubin Dipstick Negative (Negative); Urine Clarity Clear (Clear); Urine Urobilinogen Normal (Normal)
[2020-12-16 14:11] LABS: Ketone-Dipstick 150 mg/dl (Negative)
[2020-12-16 14:15] LABS: Squamous Epithelial Cells - UA 0-5 SEEN /hpf (5-10)
[2020-12-16] MEDS: Ondansetron 4 MG/2 ML Vial IV (14:33)
[2020-12-16] MEDS: 0.9% Normal Saline 1,000 ML 1000 ML IV ×2 (14:34→18:26)
--- NOTE | 2020-12-16 15:39 | ED.RN ---
This RN attempted to help pt back to room. Reminded pt to wear mask. Pt refuses , states I am not . Told pt that she then needs to stay in room. Pt refuses to allow staff to render treatment. refuses vital signs. Pt tells this nurse to leave room
[2020-12-16 16:38] LABS: Absolute Lymphocyte Count 1.39 X10^3/uL (0.83-4.51); Basophil# 0.05 X10^3/uL; Basophil% 0.3 % (0-1); Eosinophil# 0.01 X10^3/uL; Eosinophils% 0.1 % (0-5); Hematocrit 38.4 % (37-47); Hemoglobin 12.3 g/dL (12.0-15.0); Lymphocyte # 1.39 X10^3/ul (0.83-4.51); Lymphocyte % 9.2 % (19-41); Mean Corpuscular Hgb 30.8 pg (27.0-32.0); Mean Platelet Vol. 10.8 fl (6.2-12.0); Monocyte# 0.64 X10^3/uL; Monocyte% 4.2 % (0-10); NRBC Flagged by Analyzer 0 % (0-5); Neutrophil % 85.6 % (47-70); Platelet Count 264 K/mm3 (150-450); RBC Distribution Width CV 12.2 % (11.6-14.6); RBC Distribution Width SD 42.6 fl (35.1-43.9); White Blood Count 15.2 K/mm3 (4.4-11.0)
[2020-12-16 17:15] LABS: ALB/GLOB Ratio 1.3 RATIO (0.9-2.4); AST(SGOT) 12 U/L (15-37); Alanine Aminotransfer ALT/SGPT 27 U/L (13-56); Albumin, Serum 3.8 g/dL (3.2-5.0); Alkaline Phosphatase 65 U/L (45-117); Anion Gap 21 (5-15); BUN 14 mg/dL (7-18); BUN/Creat Ratio 14.3 RATIO (10-20); Calcium,Total 8.2 mg/dL (8.5-10.1); Chloride 106 mmol/L (98-107); Creatinine, Serum 0.98 mg/dL (0.55-1.02); EST Glomerular Filtration Rate 67 mL/min (>60); Est Glom Filt Rate - Afr Amer 81 mL/min (>60); Estimated Creatinine Clearance 57.58 ml/min; Globulin 2.9 g/dL (2.2-4.2); Glucose 487 mg/dL (74-106); Lipase 176 U/L (73-393); Potassium 5.5 mmol/L (3.5-5.1); Protein, Total 6.7 g/dL (6.4-8.2); Sodium Level 137 mmol/L (136-145)
[2020-12-16 18:24] LABS: Lactic Acid 1.8 mmol/L (0.4-1.9)
--- NOTE | 2020-12-16 19:38 | HP.PCM.HOS_ITS ---
HPI - General General Date of Admission: 12/16/20 HPI Narrative MATHEUS DODSON, is a 40 F who presents with nausea and vomiting secondary to hyperglycemia and DKA. She has been in the hospital 3 times within the last month secondary to DKA. The first time was here and then the second time she went to an outside hospital and then now she is back. Each time she says that her insulin pump is working. In the ER she was found to have a potassium of 5.5 a white blood cell count of 15.2 and a glucose of 487 with urine ketones and a small acetone level. [facility] Medical History Anxiety Asthma Bipolar disorder Depression Diabetes Hypertension Migraines Substance abuse Home Medications Humalog U-100 Insulin 0 unit SQ UD 01/19/16 [History Last Taken 12/16/20] lisinopril 5 mg PO DAILY 01/06/17 [History Last Taken Unknown] albuterol sulfate 1 - 2 puff INHALATION Q6H PRN 10/20/20 [History Last Taken Unknown] fluticasone propionate 2 spray INTRANASAL DAILY 12/16/20 [History Last Taken Unknown] pravastatin 40 mg PO QHS 12/16/20 [History Last Taken Unknown] Allergy/AdvReac Type Severity Reaction Status Date / Time latex Allergy Hives Verified 12/16/20 13:24 naproxen Allergy Hives Verified 12/16/20 13:24 oseltamivir phosphate AdvReac Other Verified 12/16/20 13:24 [From Tamiflu] Family History Other Diabetes Leukemia Thyroid disorder Surgical History History of partial hysterectomy Social History Smoking Status: Current every day smoker alcohol intake: current alcohol intake frequency: holidays/special occasions only ROS Constitutional Constitutional: Reports chills and fatigue; Denies fever(s) Eyes Eyes: Denies blurry vision ENT HEENT: Denies dysphagia or headache(s) Cardiovascular Cardiovascular: Denies chest pain, dyspnea on exertion or palpitations Respiratory/Chest Respiratory/Chest: Denies cough or shortness of breath with exertion Gastrointestinal Gastrointestinal: Reports nausea and vomiting; Denies abdominal pain or diarrhea Genitourinary Genitourinary: Denies burning urination Musculoskeletal Musculoskeletal: Denies arthralgias Neurologic Neurologic: Denies focal weakness Psychiatric Psychiatric: Denies anxiety or depression Vital Signs Vital Signs Vital Signs: 12/16/20 13:26 12/16/20 14:35 12/16/20 14:39 Temperature 99.8 F H Temperature Source Temporal Pulse Rate 110 H Respiratory Rate 24 H Respiratory Effort Normal Respiratory Pattern Normal Blood Pressure 114/61 106/51 L Blood Pressure Mean 78 69 Pulse Ox 98 Oxygen Delivery Method Room Air 12/16/20 19:32 Temperature Temperature Source Pulse Rate 97 Respiratory Rate 23 H Respiratory Effort Respiratory Pattern Blood Pressure 119/66 Blood Pressure Mean 83 Pulse Ox 99 Oxygen Delivery Method Room Air Physical Exam Const alert, oriented x3 and no apparent distress General Appearance: cooperative HEENT normocephalic Mouth: dry mucous membranes Cardio regular rate, regular rhythm, S1 normal heart sound, S2 normal heart sound and no murmurs GI soft to palpation, non-tender and non-distended; Negative for hepatosplenomegaly Extremity no clubbing, cyanosis or edema Skin no rashes or lesions noted Neuro moves all extremities and no focal motor deficits Psych affect normal Lab / Micro Data Result Diagrams: 12/16/20 16:30 12/16/20 16:30 Labs: Laboratory Results - last 24 hr 12/16/20 12/16/20 12/16/20 13:57 16:30 16:30 WBC 15.2 H RBC 4.00 L Hgb 12.3 Hct 38.4 MCV 96.0 MCH 30.8 MCHC 32.0 RDW Std Deviation 42.6 RDW Coeff of Kenan 12.2 Plt Count 264 MPV 10.8 Immature Gran % (Auto) 0.600 Neut % (Auto) 85.6 H Lymph % (Auto) 9.2 L [place] % (Auto) 4.2 Eos % (Auto) 0.1 Baso % (Auto) 0.3 Absolute Neuts (auto) 13.0 H Absolute Lymphs (auto) 1.39 Nucleated RBC % 0 Sodium 137 Potassium 5.5 H Chloride 106 Carbon Dioxide 10.0 L Anion Gap 21 H BUN 14 Creatinine 0.98 Estim Creat Clear Calc 57.58 Est GFR (MDRD) Af Amer 81 Est GFR (MDRD) Non-Af 67 BUN/Creatinine Ratio 14.3 Glucose 487 H* Lactic Acid Calcium 8.2 L Total Bilirubin 0.50 AST 12 L ALT 27 Alkaline Phosphatase 65 Total Protein 6.7 Albumin 3.8 Globulin 2.9 Albumin/Globulin Ratio 1.3 Lipase 176 Urine Color Straw Urine Clarity Clear Urine pH 5.0 Ur Specific [place] 1.015 Urine Protein Negative Urine Glucose (UA) 1000 H Urine Ketones 150 A* Urine Occult Blood Negative Urine Nitrite Negative Urine Bilirubin Negative Urine Urobilinogen Normal Ur Leukocyte Esterase Negative Urine RBC 0 SEEN Urine WBC 0 SEEN Ur Squamous Epith Cells 0-5 SEEN Urine Bacteria 0 SEEN Urine Mucus 0 SEEN Acetone Level 12/16/20 12/16/20 16:30 16:30 WBC RBC Hgb Hct MCV MCH MCHC RDW Std Deviation RDW Coeff of Kenan Plt Count MPV Immature Gran % (Auto) Neut % (Auto) Lymph % (Auto) [place] % (Auto) Eos % (Auto) Baso % (Auto) Absolute Neuts (auto) Absolute Lymphs (auto) Nucleated RBC % Sodium Potassium Chloride Carbon Dioxide Anion Gap BUN Creatinine Estim Creat Clear Calc Est GFR (MDRD) Af Amer Est GFR (MDRD) Non-Af BUN/Creatinine Ratio Glucose Lactic Acid 1.8 Calcium Total Bilirubin AST ALT Alkaline Phosphatase Total Protein Albumin Globulin Albumin/Globulin Ratio Lipase Urine Color Urine Clarity Urine pH Ur Specific [place] Urine Protein Urine Glucose (UA) Urine Ketones Urine Occult Blood Urine Nitrite Urine Bilirubin Urine Urobilinogen Ur Leukocyte Esterase Urine RBC Urine WBC Ur Squamous Epith Cells Urine Bacteria Urine Mucus Acetone Level SMALL H Radiology Impression Chest X-Ray 12/16/20 13:46 IMPRESSION: No radiographic evidence of acute cardiopulmonary disease. at 1632 Reported and signed by: Jacek Garcia MD Electronically Signed: Jacek Garcia MD at 16:31 EDT Tel , Service support , Assessment & Plan Assessment/Plan (1) DKA, type 1: QUALIFIERS: Diabetes mellitus complication detail: without coma Qualified Code(s): E10.10 - Type 1 diabetes mellitus with ketoacidosis without coma PLAN: 1. 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 -Leukocytosis is reactive to the DKA 2. Hypertension, hyperlipidemia, bipolar disorder, asthma are all chronic medical conditions which complicate her care. Her home medications will be continued as appropriate Visit Charges Inpatient E&M: 62737 Init Hosp L2
[2020-12-16 19:46] LABS: Bedside Glucose 180 mg/dL (70-110)
[2020-12-16 20:36] LABS: Bedside Glucose 137 mg/dL (70-110)
[2020-12-16] MEDS: Dext 5%-0.45% NS 1,000 ML 150 ML IV (20:45)
[2020-12-16 21:01] LABS: Bedside Glucose 137 mg/dL (70-110)
[2020-12-16 21:26] LABS: Anion Gap 12 (5-15); BUN 10 mg/dL (7-18); BUN/Creat Ratio 13.4 RATIO (10-20); Calcium,Total 7.5 mg/dL (8.5-10.1); Chloride 113 mmol/L (98-107); Creatinine, Serum 0.75 mg/dL (0.55-1.02); EST Glomerular Filtration Rate 91 mL/min (>60); Est Glom Filt Rate - Afr Amer 110 mL/min (>60); Estimated Creatinine Clearance 78.86 ml/min; Glucose 137 mg/dL (74-106); Potassium 4.2 mmol/L (3.5-5.1); Sodium Level 140 mmol/L (136-145)
[2020-12-16] MEDS: Pravastatin 40 MG Tablet PO (22:31)
[2020-12-16 22:50] LABS: Bedside Glucose 119 mg/dL (70-110)
[2020-12-16 23:21] LABS: Bedside Glucose 100 mg/dL (70-110)
[2020-12-17] VITALS (13 sets, daily range): BP systolic 82–126; BP diastolic 41–75; PULSE 62–89; RESP 17–23; TEMP 36.1–36.9; O2SAT 96–100
[2020-12-17 00:41] LABS: Bedside Glucose 139 mg/dL (70-110)
[2020-12-17 01:14] LABS: Anion Gap 12 (5-15); BUN 9 mg/dL (7-18); BUN/Creat Ratio 12.8 RATIO (10-20); Calcium,Total 7.8 mg/dL (8.5-10.1); Chloride 111 mmol/L (98-107); EST Glomerular Filtration Rate 98 mL/min (>60); Est Glom Filt Rate - Afr Amer 119 mL/min (>60); Estimated Creatinine Clearance 84.49 ml/min; Glucose 146 mg/dL (74-106); Potassium 4.3 mmol/L (3.5-5.1); Sodium Level 139 mmol/L (136-145)
[2020-12-17] MEDS: TITRATION PARAMETER CHANGE 1 EACH IV (01:18)
[2020-12-17 01:35] LABS: Bedside Glucose 214 mg/dL (70-110)
[2020-12-17 02:11] LABS: Bedside Glucose 224 mg/dL (70-110)
[2020-12-17 03:16] LABS: Bedside Glucose 176 mg/dL (70-110)
[2020-12-17 04:16] LABS: Bedside Glucose 134 mg/dL (70-110)
[2020-12-17 04:19] LABS: Absolute Lymphocyte Count 3.54 X10^3/uL (0.83-4.51); Basophil# 0.05 X10^3/uL; Basophil% 0.5 % (0-1); Eosinophil# 0.08 X10^3/uL; Eosinophils% 0.9 % (0-5); Hematocrit 31.3 % (37-47); Hemoglobin 10.2 g/dL (12.0-15.0); Lymphocyte # 3.54 X10^3/ul (0.83-4.51); Lymphocyte % 38.4 % (19-41); Mean Corp Hgb Conc 32.6 g/dL (32-36); Mean Corpuscular Hgb 30.5 pg (27.0-32.0); Mean Corpuscular Volume 93.7 fL (81-99); Mean Platelet Vol. 10.6 fl (6.2-12.0); Monocyte# 0.57 X10^3/uL; Monocyte% 6.2 % (0-10); NRBC Flagged by Analyzer 0 % (0-5); Neutrophil # 4.95 X10^3/uL (2.7-7.7); Neutrophil % 53.7 % (47-70); Platelet Count 274 K/mm3 (150-450); RBC Distribution Width CV 12.5 % (11.6-14.6); Red Blood Count 3.34 M/mm3 (4.2-5.4); White Blood Count 9.2 K/mm3 (4.4-11.0)
[2020-12-17 04:35] LABS: Anion Gap 5 (5-15); BUN 8 mg/dL (7-18); BUN/Creat Ratio 10.7 RATIO (10-20); Calcium,Total 7.3 mg/dL (8.5-10.1); Chloride 112 mmol/L (98-107); Creatinine, Serum 0.75 mg/dL (0.55-1.02); EST Glomerular Filtration Rate 92 mL/min (>60); Est Glom Filt Rate - Afr Amer 111 mL/min (>60); Estimated Creatinine Clearance 78.86 ml/min; Glucose 122 mg/dL (74-106); Potassium 5.6 mmol/L (3.5-5.1); Sodium Level 137 mmol/L (136-145)
[2020-12-17 05:16] LABS: Bedside Glucose 114 mg/dL (70-110)
[2020-12-17] MEDS: Dext 5%-0.45% NS 1,000 ML 150 ML IV (05:26)
[2020-12-17 07:05] LABS: Bedside Glucose 172 mg/dL (70-110)
[2020-12-17 08:36] LABS: Bedside Glucose 175 mg/dL (70-110)
[2020-12-17] MEDS: Insulin Lispro 100 UNIT/ML INSULN.PEN 8 UNIT SC ×2 (08:43→12:34)
[2020-12-17] MEDS: Insulin Lispro 100 UNIT/ML INSULN.PEN SC ×2 (08:44→12:34)
[2020-12-17] MEDS: Lisinopril 5 MG Tablet PO (08:46)
--- NOTE | 2020-12-17 09:08 | PCM.DC ---
Discharge Instructions Diet Discharge Diet: 1800 Calorie Control Diet Activity Discharge Activity: Return to Normal Activity and May Not Drive (For 2 weeks) Weight Bearing Status: Weight bearing as tolerated Dressing / Incision Call your doctor if you observe: Fever of 101 or Higher, Coldness, Increased Pain, Numbness or Tingling, Change in Color, Inability to urinate, Inability to have a bowel movement, Using more than one pad per hour, Shortness of breath, Dizziness, Fainting spells, Swelling in the ankles, Chest pain, Prolonged hiccupping, Increased palpitations (irregular heartbeat), Calf discomfort and Uncontrolled pain Follow Up Care Test Results: Test results from this visit will be discussed in further detail at your follow-up appointment, if applicable. Discharge Plan Admission Admit Date/Time: 12/16/20 18:03 Attending Provider: Chivo Thomas Primary Care Provider: Darlene Bass Instructions Patient Instructions: Diabetes: Understanding Carbohydrates, Diabetes: Caring for Your Body, ED Gastroenteritis, Noninfectious, ED Diabetic Insulin Reaction Discharge Orders/Prescriptions Prescriptions: New insulin lispro [Humalog KwikPen Insulin] 100 unit/mL Insulin Pen 8 unit subcut TIDCM 30 Days Qty: 10 RF: 0 insulin lispro [Humalog KwikPen Insulin] 100 unit/mL Insulin Pen See Protocol unit subcut ACHS Qty: 0 RF: 0 Lantus Solostar U-100 Insulin 100 unit/mL (3 mL) Insulin Pen 20 units subcut BID 30 Days Qty: 12 RF: 0 Continued lisinopril 5 MG tablet 5 mg PO DAILY RF: 0 albuterol sulfate 1 PUFF inhaler 1 - 2 puff INHALATION Q6H PRN (Reason: Sob &/Or Wheezing) RF: 0 pravastatin 40 mg tablet 40 mg PO QHS RF: 0 fluticasone propionate 50 mcg/actuation spray,suspension 2 spray INTRANASAL DAILY RF: 0 Held Humalog U-100 Insulin 100 UNIT/ML cartridge 0 unit SQ UD RF: 0 Hold Instructions: Hold until insulin pump is fixed Referrals / Follow Up: Darlene Bass MD [Primary Care Provider] - Gene Reyes MD [STAFF PHYSICIAN] - (Need insulin pump) Disposition Disposition (needs filled in before D/C Order can be placed): Home, self care
--- NOTE | 2020-12-17 09:19 | PCM.DC.SUM ---
Providers Date of Admission: 12/16/20 Primary Care Physician: Dr. Darlene Bass MD Reason For Visit: DKA Diagnosis Discharge Diagnosis (1) DKA, type 1: Status: Acute Qualifiers: Diabetes mellitus complication detail: without coma Qualified Code(s): E10.10 - Type 1 diabetes mellitus with ketoacidosis without coma (2) Type I diabetes mellitus: Status: Chronic Medications at Discharge Home Medications Humalog U-100 Insulin 0 unit SQ UD 01/19/16 lisinopril 5 mg PO DAILY 01/06/17 albuterol sulfate 1 - 2 puff INHALATION Q6H PRN 10/20/20 fluticasone propionate 2 spray INTRANASAL DAILY 12/16/20 pravastatin 40 mg PO QHS 12/16/20 insulin glargine [Lantus Solostar U-100 Insulin] 20 units SUBCUT BID 30 Days #12 ml 12/17/20 insulin lispro [Humalog KwikPen Insulin] 8 unit SUBCUT TIDCM 30 Days #10 ml 12/17/20 insulin lispro [Humalog KwikPen Insulin] See Protocol SUBCUT ACHS #0 ml 12/17/20 Hospital Course Summary of Care Provided Minutes Spent on Discharge: 35 Hospital Course: This is a 40-year-old female with history of type 1 diabetes mellitus was admitted DKA after recent discharge on 12/13/20 with recent recurrent admissions. DKA happened because of malfunctioning of insulin pump. Patient was treated with IV fluid and insulin drip as per DKA protocol and DKA was corrected. Anion gap is closed. Intermittent subcutaneous bolus and basal insulin started. Glucose is controlled. insulin pump was removed. Patient was educated about glucometer, insulin injection. Diabetic education provided. Her other comorbidities includes hypertension, dyslipidemia, bipolar disorder and asthma and her home medications were continued. Discharge medication reconciliation done. Discharge follow-up instructions completed. Discharge process discussed with the patient and all questions were answered to patient's satisfaction. 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 Until then she needs to use intermittent insulin subcutaneous injection. Prescription for insulin Lantus and insulin lispro along with glucometer and glucose checks supplies were given. Total time spent, exact 35 minutes on discharge meds reconciliation, examination, coordination of care with nurses and ancillary staff, review of imaging and blood test and discussion with the patient on follow-up instructions Physical Exam Narrative Patient denies any nausea or vomiting, abdominal pain or fever or chills. Denies dysuria, increased frequency or urgency. Physical exam General: Alert, Oriented x3, Cooperative HEENT: Atraumatic, PERRLA, EOMI, Normocephalic Oral: No Gingival or Mucosal Lesions/ Ulcerations Neck: Supple, No JVD, Negative Carotid Bruits Lungs: Air entry diminished in bilateral lung bases. No crepitation/rhonchi Cardiovascular: Regular rate, Regular Rhythm, Normal S1, Normal S2, No murmurs Abdomen: Bowel Sounds Present, Soft, Non Tender, Non-Distended : No renal angle tenderness. No suprapubic tenderness. Extremities: No edema, Capillary Refill Less than 3 Seconds Skin: No rashes, No breakdown Musculoskeletal: No Tenderness to Palpation of Joints or Extremities Neurological: Cranial nerves II-XII grossly intact, Deep Tendon Reflexes 2+/4 and Symmetrical, Neuro grossly intact Psych/Mental Status: Normal Affect, Appropriate. ABG / Lab / Microbiology Data Result Diagrams: 12/17/20 04:05 12/17/20 12:20 Laboratory: Laboratory Results - last 24 hr 12/16/20 12/16/20 12/16/20 13:57 16:30 16:30 WBC 15.2 H RBC 4.00 L Hgb 12.3 Hct 38.4 MCV 96.0 MCH 30.8 MCHC 32.0 RDW Std Deviation 42.6 RDW Coeff of Kenan 12.2 Plt Count 264 MPV 10.8 Immature Gran % (Auto) 0.600 Neut % (Auto) 85.6 H Lymph % (Auto) 9.2 L [place] % (Auto) 4.2 Eos % (Auto) 0.1 Baso % (Auto) 0.3 Absolute Neuts (auto) 13.0 H Absolute Lymphs (auto) 1.39 Nucleated RBC % 0 Sodium 137 Potassium 5.5 H Chloride 106 Carbon Dioxide 10.0 L Anion Gap 21 H BUN 14 Creatinine 0.98 Estim Creat Clear Calc 57.58 Est GFR (MDRD) Af Amer 81 Est GFR (MDRD) Non-Af 67 BUN/Creatinine Ratio 14.3 Glucose 487 H* Lactic Acid Calcium 8.2 L Total Bilirubin 0.50 AST 12 L ALT 27 Alkaline Phosphatase 65 Total Protein 6.7 Albumin 3.8 Globulin 2.9 Albumin/Globulin Ratio 1.3 Lipase 176 Urine Color Straw Urine Clarity Clear Urine pH 5.0 Ur Specific [place] 1.015 Urine Protein Negative Urine Glucose (UA) 1000 H Urine Ketones 150 A* Urine Occult Blood Negative Urine Nitrite Negative Urine Bilirubin Negative Urine Urobilinogen Normal Ur Leukocyte Esterase Negative Urine RBC 0 SEEN Urine WBC 0 SEEN Ur Squamous Epith Cells 0-5 SEEN Urine Bacteria 0 SEEN Urine Mucus 0 SEEN Acetone Level POC Glucose 12/16/20 12/16/20 12/16/20 16:30 16:30 19:35 WBC RBC Hgb Hct MCV MCH MCHC RDW Std Deviation RDW Coeff of Kenan Plt Count MPV Immature Gran % (Auto) Neut % (Auto) Lymph % (Auto) [place] % (Auto) Eos % (Auto) Baso % (Auto) Absolute Neuts (auto) Absolute Lymphs (auto) Nucleated RBC % Sodium Potassium Chloride Carbon Dioxide Anion Gap BUN Creatinine Estim Creat Clear Calc Est GFR (MDRD) Af Amer Est GFR (MDRD) Non-Af BUN/Creatinine Ratio Glucose Lactic Acid 1.8 Calcium Total Bilirubin AST ALT Alkaline Phosphatase Total Protein Albumin Globulin Albumin/Globulin Ratio Lipase Urine Color Urine Clarity Urine pH Ur Specific [place] Urine Protein Urine Glucose (UA) Urine Ketones Urine Occult Blood Urine Nitrite Urine Bilirubin Urine Urobilinogen Ur Leukocyte Esterase Urine RBC Urine WBC Ur Squamous Epith Cells Urine Bacteria Urine Mucus Acetone Level SMALL H POC Glucose 180 H 12/16/20 12/16/20 12/16/20 20:27 20:45 20:56 WBC RBC Hgb Hct MCV MCH MCHC RDW Std Deviation RDW Coeff of Kenan Plt Count MPV Immature Gran % (Auto) Neut % (Auto) Lymph % (Auto) [place] % (Auto) Eos % (Auto) Baso % (Auto) Absolute Neuts (auto) Absolute Lymphs (auto) Nucleated RBC % Sodium 140 Potassium 4.2 Chloride 113 H Carbon Dioxide 15.0 L Anion Gap 12 BUN 10 Creatinine 0.75 Estim Creat Clear Calc 78.86 Est GFR (MDRD) Af Amer 110 Est GFR (MDRD) Non-Af 91 BUN/Creatinine Ratio 13.4 Glucose 137 H Lactic Acid Calcium 7.5 L Total Bilirubin AST ALT Alkaline Phosphatase Total Protein Albumin Globulin Albumin/Globulin Ratio Lipase Urine Color Urine Clarity Urine pH Ur Specific [place] Urine Protein Urine Glucose (UA) Urine Ketones Urine Occult Blood Urine Nitrite Urine Bilirubin Urine Urobilinogen Ur Leukocyte Esterase Urine RBC Urine WBC Ur Squamous Epith Cells Urine Bacteria Urine Mucus Acetone Level POC Glucose 137 H 137 H 12/16/20 12/16/20 12/17/20 22:34 23:12 00:30 WBC RBC Hgb Hct MCV MCH MCHC RDW Std Deviation RDW Coeff of Kenan Plt Count MPV Immature Gran % (Auto) Neut % (Auto) Lymph % (Auto) [place] % (Auto) Eos % (Auto) Baso % (Auto) Absolute Neuts (auto) Absolute Lymphs (auto) Nucleated RBC % Sodium 139 Potassium 4.3 Chloride 111 H Carbon Dioxide 16.0 L Anion Gap 12 BUN 9 Creatinine 0.70 Estim Creat Clear Calc 84.49 Est GFR (MDRD) Af Amer 119 Est GFR (MDRD) Non-Af 98 BUN/Creatinine Ratio 12.8 Glucose 146 H Lactic Acid Calcium 7.8 L Total Bilirubin AST ALT Alkaline Phosphatase Total Protein Albumin Globulin Albumin/Globulin Ratio Lipase Urine Color Urine Clarity Urine pH Ur Specific [place] Urine Protein Urine Glucose (UA) Urine Ketones Urine Occult Blood Urine Nitrite Urine Bilirubin Urine Urobilinogen Ur Leukocyte Esterase Urine RBC Urine WBC Ur Squamous Epith Cells Urine Bacteria Urine Mucus Acetone Level POC Glucose 119 H 100 12/17/20 12/17/20 12/17/20 00:32 01:30 02:02 WBC RBC Hgb Hct MCV MCH MCHC RDW Std Deviation RDW Coeff of Kenan Plt Count MPV Immature Gran % (Auto) Neut % (Auto) Lymph % (Auto) [place] % (Auto) Eos % (Auto) Baso % (Auto) Absolute Neuts (auto) Absolute Lymphs (auto) Nucleated RBC % Sodium Potassium Chloride Carbon Dioxide Anion Gap BUN Creatinine Estim Creat Clear Calc Est GFR (MDRD) Af Amer Est GFR (MDRD) Non-Af BUN/Creatinine Ratio Glucose Lactic Acid Calcium Total Bilirubin AST ALT Alkaline Phosphatase Total Protein Albumin Globulin Albumin/Globulin Ratio Lipase Urine Color Urine Clarity Urine pH Ur Specific [place] Urine Protein Urine Glucose (UA) Urine Ketones Urine Occult Blood Urine Nitrite Urine Bilirubin Urine Urobilinogen Ur Leukocyte Esterase Urine RBC Urine WBC Ur Squamous Epith Cells Urine Bacteria Urine Mucus Acetone Level POC Glucose 139 H 214 H 224 H 12/17/20 12/17/20 12/17/20 03:09 04:05 04:05 WBC 9.2 RBC 3.34 L Hgb 10.2 L Hct 31.3 L MCV 93.7 MCH 30.5 MCHC 32.6 RDW Std Deviation 43.0 RDW Coeff of Kenan 12.5 Plt Count 274 MPV 10.6 Immature Gran % (Auto) 0.300 Neut % (Auto) 53.7 Lymph % (Auto) 38.4 [place] % (Auto) 6.2 Eos % (Auto) 0.9 Baso % (Auto) 0.5 Absolute Neuts (auto) 5.0 Absolute Lymphs (auto) 3.54 Nucleated RBC % 0 Sodium 137 Potassium 5.6 H Chloride 112 H Carbon Dioxide 20.0 L Anion Gap 5 BUN 8 Creatinine 0.75 Estim Creat Clear Calc 78.86 Est GFR (MDRD) Af Amer 111 Est GFR (MDRD) Non-Af 92 BUN/Creatinine Ratio 10.7 Glucose 122 H Lactic Acid Calcium 7.3 L Total Bilirubin AST ALT Alkaline Phosphatase Total Protein Albumin Globulin Albumin/Globulin Ratio Lipase Urine Color Urine Clarity Urine pH Ur Specific [place] Urine Protein Urine Glucose (UA) Urine Ketones Urine Occult Blood Urine Nitrite Urine Bilirubin Urine Urobilinogen Ur Leukocyte Esterase Urine RBC Urine WBC Ur Squamous Epith Cells Urine Bacteria Urine Mucus Acetone Level POC Glucose 176 H 12/17/20 12/17/20 12/17/20 04:05 05:10 06:59 WBC RBC Hgb Hct MCV MCH MCHC RDW Std Deviation RDW Coeff of Kenan Plt Count MPV Immature Gran % (Auto) Neut % (Auto) Lymph % (Auto) [place] % (Auto) Eos % (Auto) Baso % (Auto) Absolute Neuts (auto) Absolute Lymphs (auto) Nucleated RBC % Sodium Potassium Chloride Carbon Dioxide Anion Gap BUN Creatinine Estim Creat Clear Calc Est GFR (MDRD) Af Amer Est GFR (MDRD) Non-Af BUN/Creatinine Ratio Glucose Lactic Acid Calcium Total Bilirubin AST ALT Alkaline Phosphatase Total Protein Albumin Globulin Albumin/Globulin Ratio Lipase Urine Color Urine Clarity Urine pH Ur Specific [place] Urine Protein Urine Glucose (UA) Urine Ketones Urine Occult Blood Urine Nitrite Urine Bilirubin Urine Urobilinogen Ur Leukocyte Esterase Urine RBC Urine WBC Ur Squamous Epith Cells Urine Bacteria Urine Mucus Acetone Level POC Glucose 134 H 114 H 172 H 12/17/20 08:30 WBC RBC Hgb Hct MCV MCH MCHC RDW Std Deviation RDW Coeff of Kenan Plt Count MPV Immature Gran % (Auto) Neut % (Auto) Lymph % (Auto) [place] % (Auto) Eos % (Auto) Baso % (Auto) Absolute Neuts (auto) Absolute Lymphs (auto) Nucleated RBC % Sodium Potassium Chloride Carbon Dioxide Anion Gap BUN Creatinine Estim Creat Clear Calc Est GFR (MDRD) Af Amer Est GFR (MDRD) Non-Af BUN/Creatinine Ratio Glucose Lactic Acid Calcium Total Bilirubin AST ALT Alkaline Phosphatase Total Protein Albumin Globulin Albumin/Globulin Ratio Lipase Urine Color Urine Clarity Urine pH Ur Specific [place] Urine Protein Urine Glucose (UA) Urine Ketones Urine Occult Blood Urine Nitrite Urine Bilirubin Urine Urobilinogen Ur Leukocyte Esterase Urine RBC Urine WBC Ur Squamous Epith Cells Urine Bacteria Urine Mucus Acetone Level POC Glucose 175 H Radiography Diagnostic Testing: Radiology Impression Chest X-Ray 12/16/20 13:46 IMPRESSION: No radiographic evidence of acute cardiopulmonary disease. at 1632 Reported and signed by: Jacek Garcia MD Electronically Signed: Jacek Garcia MD at 16:31 EDT Tel , Service support , Meaningful Use Info Meaningful Use Diagnoses (Choose all that apply): None applicable Discharge Plan Admission Admit Date/Time: 12/16/20 18:03 Primary Reason for Your Visit: Diabetic ketoacidosis, DM type I Attending Provider: Chivo Thomas Primary Care Provider: Darlene Bass Instructions Patient Instructions: Diabetes: Understanding Carbohydrates, Diabetes: Caring for Your Body, ED Gastroenteritis, Noninfectious, ED Diabetic Insulin Reaction Additional Instructions / Restrictions: Follow-up with endocrinology in [place]. Need insulin pump to fix. Discharge Orders/Prescriptions Prescriptions: New insulin lispro [Humalog KwikPen Insulin] 100 unit/mL Insulin Pen 8 unit subcut TIDCM 30 Days Qty: 10 RF: 0 insulin lispro [Humalog KwikPen Insulin] 100 unit/mL Insulin Pen See Protocol unit subcut ACHS Qty: 0 RF: 0 Lantus Solostar U-100 Insulin 100 unit/mL (3 mL) Insulin Pen 20 units subcut BID 30 Days Qty: 12 RF: 0 Continued lisinopril 5 MG tablet 5 mg PO DAILY RF: 0 albuterol sulfate 1 PUFF inhaler 1 - 2 puff INHALATION Q6H PRN (Reason: Sob &/Or Wheezing) RF: 0 pravastatin 40 mg tablet 40 mg PO QHS RF: 0 fluticasone propionate 50 mcg/actuation spray,suspension 2 spray INTRANASAL DAILY RF: 0 Held Humalog U-100 Insulin 100 UNIT/ML cartridge 0 unit SQ UD RF: 0 Hold Instructions: Hold until insulin pump is fixed Other Ambulatory Orders: Glucometer (Routine) Location: None Selected Ordered By: Dr. Chivo Thomas Referrals / Follow Up: Darlene Bass MD [Primary Care Provider] - Disposition Disposition (needs filled in before D/C Order can be placed): Home, self care Visit Charges Inpatient E&M: 56155 Disch Hosp
--- NOTE | 2020-12-17 11:02 | CASEMGMT ---
Readmission chart review: Pt was admitted 12/12-12/13/20 for DKA, placed on insulin gtt and then d/c'd the next day. Pt states no concerns at discharge. See CM assessment by this RN CM on 12/13/20. Pt returned to [facility] ED 12/16/20 for vomiting and elevated sugars. Pt does have and insulin pump and seems to not be working at this time. Pt asked to turn off pump and to be sent home on humalog pens and lantus. Pt was on insulin gtt again but recovered quickly once again. Pt to f/u with Dr. Espinal, endocrinology at [facility], regarding elevated sugars and insulin pump malfunction. CM to follow. SStaten KENYA CASTRO
[2020-12-17 12:50] LABS: Anion Gap 8 (5-15); BUN 8 mg/dL (7-18); BUN/Creat Ratio 11.5 RATIO (10-20); Calcium,Total 8.3 mg/dL (8.5-10.1); Chloride 108 mmol/L (98-107); Creatinine, Serum 0.69 mg/dL (0.55-1.02); EST Glomerular Filtration Rate 100 mL/min (>60); Est Glom Filt Rate - Afr Amer 121 mL/min (>60); Estimated Creatinine Clearance 85.72 ml/min; Glucose 247 mg/dL (74-106); Potassium 4.1 mmol/L (3.5-5.1); Sodium Level 135 mmol/L (136-145)
[2020-12-17 12:51] LABS: Bedside Glucose 259 mg/dL (70-110)
== END 2020-12-17 13:55 | disposition home or self-care (01) ==
LOC: ED 14:07 → ICU 20:16
PROVIDERS: Hospitalist; Admitting Provider Family Medicine; Emergency Provider Emergency Medicine; PCP Family Medicine; Visit Provider Internal Medicine
DX: E10.10 Type 1 diabetes mellitus with ketoacidosis without coma (principal); F31.9 Bipolar disorder, unspecified; R35.0 Frequency of micturition; J45.909 Unspecified asthma, uncomplicated; I10 Essential (primary) hypertension; F17.200 Nicotine dependence, unspecified, uncomplicated; E78.5 Hyperlipidemia, unspecified; Z79.899 Other long term (current) drug therapy; Z95.1 Presence of aortocoronary bypass graft; Z79.4 Long term (current) use of insulin; Z96.41 Presence of insulin pump (external) (internal); K52.9 Noninfective gastroenteritis and colitis, unspecified
CPT/HCPCS: 36415; 71045; 80048; 80053; 81001; 82009; 82962; 83605; 83690; 85025; 93005; 96361; 96365; 96366; 96375; 97802; 99218; 99285; J7030; A4216; G0378; J2405; J7799

== ENCOUNTER 2021-10-28 10:50 | Emergency (ER) | payer MEDICAID, SELFPAY ==
[2021-10-28 10:50] VITALS: BP 136/89; PULSE 76; RESP 18; TEMP 36.6; O2SAT 99; BMI 26.6
[2021-10-28 11:59] LABS: Absolute Lymphocyte Count 2.65 X10^3/uL (0.83-4.51); Absolute Neutrophil Count 3.2 X10^3/uL (2.0-7.7); Basophil# 0.05 X10^3/uL; Basophil% 0.8 % (0-1); Eosinophils% 1.6 % (0-5); Hematocrit 41.6 % (37-47); Hemoglobin 14.3 g/dL (12.0-15.0); Lymphocyte # 2.65 X10^3/ul (0.83-4.51); Lymphocyte % 41.1 % (19-41); Mean Corp Hgb Conc 34.4 g/dL (32-36); Mean Corpuscular Hgb 31.2 pg (27.0-32.0); Mean Corpuscular Volume 90.6 fL (81-99); Mean Platelet Vol. 9.8 fl (6.2-12.0); Monocyte# 0.38 X10^3/uL; Monocyte% 5.9 % (0-10); NRBC Flagged by Analyzer 0 % (0-5); Neutrophil # 3.23 X10^3/uL (2.7-7.7); Neutrophil % 50.1 % (47-70); Platelet Count 371 K/mm3 (150-450); RBC Distribution Width SD 39.8 fl (35.1-43.9); Red Blood Count 4.59 M/mm3 (4.2-5.4); White Blood Count 6.4 K/mm3 (4.4-11.0)
[2021-10-28 12:09] LABS: Anion Gap 7 (5-15); BUN 10 mg/dL (7-18); BUN/Creat Ratio 13.9 RATIO (10-20); Calcium,Total 8.9 mg/dL (8.5-10.1); Chloride 102 mmol/L (98-107); Creatinine, Serum 0.72 mg/dL (0.55-1.02); EST Glomerular Filtration Rate 95 mL/min (>60); Est Glom Filt Rate - Afr Amer 115 mL/min (>60); Estimated Creatinine Clearance 82.15 ml/min; Glucose 203 mg/dL (74-106); Potassium 3.8 mmol/L (3.5-5.1); Sodium Level 135 mmol/L (136-145)
--- NOTE | 2021-10-28 12:20 | CT_ITS ---
EXAM: CT ABDOMEN AND PELVIS WITHOUT INTRAVENOUS CONTRAST : 1980 CLINICAL INDICATION: abdominal pain TECHNIQUE: Helically acquired images were obtained of the abdomen and pelvis without intravenous contrast. This CT exam was performed using one or more of the following dose reduction techniques: automated exposure control, adjustment of the mA and/or kV according to patient size, and/or use of iterative reconstruction technique. This report was created using [employer] report generation technology. COMPARISON: None. FINDINGS: LOWER THORAX: Unremarkable. Lung bases are clear. No cardiomegaly. No significant pericardial effusion. ABDOMEN: LIVER: Unremarkable. Homogeneous. GALLBLADDER AND BILE DUCTS: There are surgical clips from a cholecystectomy. No intra- or extrahepatic biliary ductal dilation. PANCREAS: Unremarkable. No focal cystic mass. SPLEEN: Unremarkable. Normal size without focal cystic or solid mass. ADRENALS: Unremarkable. No nodules. KIDNEYS AND URETERS: Unremarkable. Normal renal size and position. No hydronephrosis. STOMACH AND BOWEL: Unremarkable. No stomach or bowel distention. No focal inflammatory change. PELVIS: APPENDIX: No evidence of acute appendicitis. BLADDER: Unremarkable. REPRODUCTIVE: Unremarkable as visualized. No mass. ABDOMEN and PELVIS: INTRAPERITONEAL SPACE: Unremarkable. No ascites or other fluid collection. No free air. BONES/JOINTS: Unremarkable. No suspicious lytic or blastic abnormality. SOFT TISSUES: Unremarkable. No discrete abdominal or pelvic wall hernia. VASCULATURE: Unremarkable. Abdominal aorta is non-dilated. LYMPH NODES: Unremarkable. No enlarged lymph nodes. CT/Abdomen/Pelvis without Cont IMPRESSION: No acute findings in the abdomen or pelvis. Individualized dose optimization techniques were used for this CT. at 1337 Reported and signed by: Contreras Lowery MD Electronically Signed: Contreras Lowery MD at 13:36 EDT ,
[2021-10-28 12:38] LABS: Bacteria 0 SEEN /hpf (None Seen); Mucous, Urine 0 SEEN /hpf (<or=2+); Red Blood Cells-Urine 0 SEEN /hpf (0-5); Squamous Epithelial Cells - UA 0 SEEN /hpf (5-10)
[2021-10-28 12:41] LABS: Color, Urine Yellow (Yellow); Glucose, Dipstick 100 mg/dl (Normal); Ketone-Dipstick 150 mg/dl (Negative); Leukocyte Esterase-Dipstick 25 /ul (Negative); Nitrite-Dipstick Negative (Negative); Occult Blood-Urine Negative /ul (Negative); Protein-Dipstick 15 mg/dl (Negative); Urine Bilirubin Dipstick Negative (Negative); Urine Clarity Clear (Clear); Urine Urobilinogen 1 mg/dl (Normal)
--- NOTE | 2021-10-28 12:46 | EDS_ITS ---
HPI History of Present Illness Chief Complaint: Abd Pain Narrative Narrative: Patient presents with most epigastric pain for the past few days. No fevers or chills cough or congestion. She tells me the abdominal pain does not radiate to her back. She has no lower abdominal pain. No recent fever or chills she has no diarrhea, she has had bowel movements over the past few days and denies constipation. She has some nausea but no vomiting. No chest pain or shortness of breath. [facility] Medical History Anxiety Asthma Bipolar disorder Depression Diabetes Hypertension Migraines Substance abuse Home Medications Humalog U-100 Insulin 0 unit SQ UD 01/19/16 [History Last Taken 12/16/20] lisinopril 5 mg PO DAILY 01/06/17 [History Last Taken Unknown] albuterol sulfate 1 - 2 puff INHALATION Q6H PRN 10/20/20 [History Last Taken Unknown] fluticasone propionate 2 spray INTRANASAL DAILY 12/16/20 [History Last Taken Unknown] pravastatin 40 mg PO QHS 12/16/20 [History Last Taken Unknown] insulin glargine [Lantus Solostar U-100 Insulin] 20 units SUBCUT BID 30 Days #12 ml 12/17/20 [Rx Last Taken Unknown] insulin lispro [Humalog KwikPen Insulin] 8 unit SUBCUT TIDCM 30 Days #10 ml 12/17/20 [Rx Last Taken Unknown] insulin lispro [Humalog KwikPen Insulin] See Protocol SUBCUT ACHS #0 ml 12/17/20 [Rx Last Taken Unknown] needle (disp) 25 gauge #1000 ea 12/18/20 [Rx Last Taken Unknown] pen needle, diabetic #100 ea 12/18/20 [Rx Last Taken Unknown] famotidine [Pepcid] 40 mg PO DAILY #20 tab 10/28/21 [Rx Last Taken Unknown] Allergy/AdvReac Type Severity Reaction Status Date / Time latex Allergy Hives Verified 12/16/20 13:24 naproxen Allergy Hives Verified 12/16/20 13:24 oseltamivir phosphate AdvReac Other Verified 12/16/20 13:24 [From Tamiflu] Family History Other Diabetes Leukemia Thyroid disorder Surgical History History of partial hysterectomy Social History adopted: No household members: family housing: house Smoking Status: Current every day smoker tobacco type: cigarettes alcohol intake: current alcohol intake frequency: holidays/special occasions only ROS ROS ED ROS Narrative Physical exam General: Well nourished, Well developed, No Acute Distress Head: Normocephalic, Atraumatic Eyes: Conjunctiva not pale ENT: Moist mucous membranes Neck: Supple, Nontender, No lymphadenopathy Cardiovascular: Regular rate, Regular rhythm Respiratory: No distress, CTA bilaterally Abdomen: Soft, epigastric pain as in HPI Back: Nontender, Normal Inspection. Negative for: CVA tenderness Extremities: Nontender, No edema Skin: Normal color, No rash Neurological: Alert, Normal Strength, Normal Sensation Psychological: Normal affect EXAM Physical Exam Narrative Exam Narrative: Physical exam General: Well nourished, Well developed, No Acute Distress Head: Normocephalic, Atraumatic Eyes: Conjunctiva not pale ENT: Edentulous, slightly dry mucous membranes Neck: Supple, Nontender, No lymphadenopathy Cardiovascular: Regular rate, Regular rhythm Respiratory: No distress, CTA bilaterally Abdomen: Soft, epigastric tenderness without any guarding or rebound. No right upper quadrant pain. Negative Santiago's. No lower abdominal pain or pain at [place] Back: Nontender, Normal Inspection. Negative for: CVA tenderness Extremities: Nontender, No edema Skin: Normal color, No rash Neurological: Alert, Normal Strength, Normal Sensation Psychological: Normal affect Const Vital Signs: 10/28/21 10:50 10/28/21 13:01 Temperature 98 F Temperature Source Temporal Pulse Rate 76 87 Respiratory Rate 18 16 Blood Pressure 136/89 H 138/87 H Blood Pressure Mean 104 104 Pulse Ox 99 99 Oxygen Delivery Method Room Air MDM MDM MDM Narrative Medical decision making narrative: Patient has a normal work-up, she either has gastritis or gastroparesis from her diabetes or other chronic pathologies but at this time there is no acute catastrophe intra-abdominally. Patient appears well will be discharged home on antacids. Lab Data Labs: Laboratory Results - last 24 hr 10/28/21 10/28/21 10/28/21 11:45 11:45 11:45 WBC 6.4 RBC 4.59 Hgb 14.3 Hct 41.6 MCV 90.6 MCH 31.2 MCHC 34.4 RDW Std Deviation 39.8 RDW Coeff of Kenan 12.0 Plt Count 371 MPV 9.8 Immature Gran % (Auto) 0.500 Neut % (Auto) 50.1 Lymph % (Auto) 41.1 H [place] % (Auto) 5.9 Eos % (Auto) 1.6 Baso % (Auto) 0.8 Absolute Neuts (auto) 3.2 Absolute Lymphs (auto) 2.65 Nucleated RBC % 0 Sodium 135 L Potassium 3.8 Chloride 102 Carbon Dioxide 26.0 Anion Gap 7 BUN 10 Creatinine 0.72 Estim Creat Clear Calc 82.15 Est GFR (MDRD) Af Amer 115 Est GFR (MDRD) Non-Af 95 BUN/Creatinine Ratio 13.9 Glucose 203 H Calcium 8.9 Lipase Serum , Qual NEGATIVE Urine Color Urine Clarity Urine pH Ur Specific [place] Urine Protein Urine Glucose (UA) Urine Ketones Urine Occult Blood Urine Nitrite Urine Bilirubin Urine Urobilinogen Ur Leukocyte Esterase Urine RBC Urine WBC Ur Squamous Epith Cells Urine Bacteria Urine Mucus 10/28/21 10/28/21 11:45 12:35 WBC RBC Hgb Hct MCV MCH MCHC RDW Std Deviation RDW Coeff of Kenan Plt Count MPV Immature Gran % (Auto) Neut % (Auto) Lymph % (Auto) [place] % (Auto) Eos % (Auto) Baso % (Auto) Absolute Neuts (auto) Absolute Lymphs (auto) Nucleated RBC % Sodium Potassium Chloride Carbon Dioxide Anion Gap BUN Creatinine Estim Creat Clear Calc Est GFR (MDRD) Af Amer Est GFR (MDRD) Non-Af BUN/Creatinine Ratio Glucose Calcium Lipase 51 L Serum , Qual Urine Color Yellow Urine Clarity Clear Urine pH 7.0 Ur Specific [place] 1.010 Urine Protein 15 H Urine Glucose (UA) 100 H Urine Ketones 150 A* Urine Occult Blood Negative Urine Nitrite Negative Urine Bilirubin Negative Urine Urobilinogen 1 H Ur Leukocyte Esterase 25 H Urine RBC 0 SEEN Urine WBC 0-5 SEEN Ur Squamous Epith Cells 0 SEEN Urine Bacteria 0 SEEN Urine Mucus 0 SEEN Radiography Diagnostic Testing: Clinical Impression(s) from Imaging Studies Abdomen/Pelvis CT 10/28/21 12:20 IMPRESSION: No acute findings in the abdomen or pelvis. Individualized dose optimization techniques were used for this CT. at 1337 Reported and signed by: Contreras Lowery MD Electronically Signed: Contreras Lowery MD at 13:36 EDT Reading Location ID and State: [address] [place] [address] Tel , Service support , Discharge Plan Triage Chief Complaint: Abd Pain ED Provider: Tyson Gutierrez Dx/Rx/DC Orders Clinical Impression: Abdominal pain Instructions: Abdominal Pain Prescriptions: New famotidine [Pepcid] 40 mg tablet 40 mg PO DAILY Qty: 20 RF: 0 No Action Humalog U-100 Insulin 100 UNIT/ML cartridge 0 unit SQ UD RF: 0 Hold Instructions: Hold until insulin pump is fixed lisinopril 5 MG tablet 5 mg PO DAILY RF: 0 albuterol sulfate 1 PUFF inhaler 1 - 2 puff INHALATION Q6H PRN (Reason: Sob &/Or Wheezing) RF: 0 pravastatin 40 mg tablet 40 mg PO QHS RF: 0 fluticasone propionate 50 mcg/actuation spray,suspension 2 spray INTRANASAL DAILY RF: 0 insulin lispro [Humalog KwikPen Insulin] 100 unit/mL Insulin Pen 8 unit subcut TIDCM 30 Days Qty: 10 RF: 0 insulin lispro [Humalog KwikPen Insulin] 100 unit/mL Insulin Pen See Protocol unit subcut ACHS Qty: 0 RF: 0 Lantus Solostar U-100 Insulin 100 unit/mL (3 mL) Insulin Pen 20 units subcut BID 30 Days Qty: 12 RF: 0 (DME) needle (disp) 25 gauge 25 gauge x 5/8 needle See Rx Instructions .ROUTE .MEDSUPPLY Qty: 1000 RF: 0 (DME) pen needle, diabetic 30 gauge x 5/16 needle See Rx Instructions .ROUTE .MEDSUPPLY Qty: 100 RF: 0 Primary Care Provider: Darlene Bass Referrals: Darlene Bass MD [Primary Care Provider] - 2 Days Disposition Disposition: Home, Self Care
[2021-10-28] MEDS: Famotidine 200 MG/20 ML MDV 20 MG in 0.9% Normal Saline (Pres. free 8 ML 300 MG IV (12:48)
[2021-10-28] MEDS: Metoclopramide 10 MG/2 ML Vial 5 MG IV (12:48)
[2021-10-28] MEDS: DiphenhydrAMINE 50 MG/ML Syringe IV (12:48)
[2021-10-28 12:49] LABS: Internal QC Validated? YES +Cl - CLEAR BKGD; Pregnancy, Serum, hCG Quali. NEGATIVE Negative
[2021-10-28 13:00] LABS: White Blood Cells 0-5 SEEN /hpf (0-5)
[2021-10-28 13:01] VITALS: BP 138/87; PULSE 87; RESP 16; O2SAT 99
[2021-10-28 13:24] LABS: Lipase 51 U/L (73-393)
== END 2021-10-28 14:52 | disposition home or self-care (01) ==
PROVIDERS: Emergency Provider Emergency Medicine; PCP Family Medicine; Visit Provider Emergency Medicine
DX: R10.13 Epigastric pain (principal); E11.9 Type 2 diabetes mellitus without complications; Z79.4 Long term (current) use of insulin; I10 Essential (primary) hypertension; J45.909 Unspecified asthma, uncomplicated; F17.210 Nicotine dependence, cigarettes, uncomplicated; Z79.899 Other long term (current) drug therapy
CPT/HCPCS: 74176; 80048; 81001; 83690; 84703; 85025; 96365; 96366; 96375; 99283; J7040; A4216; J3490

== ENCOUNTER 2023-01-29 10:06 | Emergency (ER) | payer MEDICAID, SELFPAY ==
[2023-01-29 10:07] VITALS: BP 158/88; PULSE 66; RESP 14; TEMP 36.4; O2SAT 96; BMI 24.8
[2023-01-29 10:17] VITALS: PULSE 60
--- NOTE | 2023-01-29 10:37 | EX.ED.DYSGE1 ---
HPI History of Present Illness Chief Complaint: Dizziness Informant: patient Narrative Narrative: Patient presents saying that she has never had a before but she thinks she is having vertigo. 3 days ago, she was at work, she either turned her head or turn her body, and started having sensation of movement and lightheadedness at the time, with nausea. Since then, she has been having intermittent sensation of movement like she is going to fall when she is walking, like things are spinning whenever she turns her head, this makes her nauseated, she has had a headache, and ringing in both ears since all of this is occurred. No fevers or chills. No recent cold symptoms or URIs, but she has had nasal congestion throughout the entire spring for the last couple months that she thinks may be allergies. She has also had a couple bouts of diarrhea since all of this started, 1 or 2/day, loose nonbloody, and some abdominal soreness from an occasional emesis but no other abdominal pains. She denies any otorrhea. No earache except for the uncomfortable sensation of the tinnitus. She denies any head injuries recently. No weakness or numbness in any arms or legs. [facility] Medical History Anxiety Asthma Bipolar disorder Depression Diabetes Dizziness Hypertension Migraines Substance abuse Home Medications insulin lispro 100 unit/mL subcutaneous cartridge (Humalog U-100 Insulin) 0 unit SQ UD diabetes 01/19/16 [History Last Taken 12/16/20] lisinopril 5 mg tablet 5 mg PO DAILY 01/06/17 [History Last Taken Unknown] albuterol sulfate 90 mcg/actuation aerosol inhaler 1 - 2 puff inhalation Q6H PRN Sob &/Or Wheezing 10/20/20 [History Last Taken Unknown] fluticasone propionate 50 mcg/actuation nasal spray,suspension 2 spray intranasal DAILY SEASONAL ALLERGIES 12/16/20 [History Last Taken Unknown] pravastatin 40 mg tablet 40 mg PO QHS 12/16/20 [History Last Taken Unknown] insulin glargine 100 unit/mL (3 mL) subcutaneous pen (Lantus Solostar U-100 Insulin) 20 units (0.2 mL) subcut BID 30 days #12 mL 12/17/20 [Rx Last Taken Unknown] insulin lispro 100 unit/mL subcutaneous pen (Humalog KwikPen (U-100) Insulin) 8 unit (0.08 mL) subcut TIDCM 30 days #10 mL 12/17/20 [Rx Last Taken Unknown] insulin lispro 100 unit/mL subcutaneous pen (Humalog KwikPen (U-100) Insulin) See Protocol subcut ACHS #0 mL 12/17/20 [Rx Last Taken Unknown] needle (disp) 25 gauge 25 gauge x 5/8 #1,000 ea 12/18/20 [Rx Last Taken Unknown] pen needle, diabetic 30 gauge x 5/16 #100 ea 12/18/20 [Rx Last Taken Unknown] famotidine 40 mg tablet (Pepcid) 40 mg PO DAILY #20 tabs 10/28/21 [Rx Last Taken Unknown] meclizine 25 mg tablet 25 mg PO Q8H PRN PRN Dizziness #20 tabs 01/29/23 [Rx Last Taken Unknown] ondansetron 4 mg disintegrating tablet 8 mg PO Q8H PRN PRN Nausea #20 tabs 01/29/23 [Rx Last Taken Unknown] Allergy/AdvReac Type Severity Reaction Status Date / Time latex Allergy Hives Verified 01/29/23 10:07 naproxen Allergy Hives Verified 01/29/23 10:07 oseltamivir phosphate AdvReac Other Verified 01/29/23 10:07 [From Tamiflu] Family History Other Diabetes Leukemia Thyroid disorder Surgical History History of partial hysterectomy Social History adopted: No household members: family housing: house Smoking Status: Current every day smoker tobacco type: cigarettes alcohol intake: current alcohol intake frequency: holidays/special occasions only ROS ROS ED Constitutional Constitutional ED: Denies chills or fever(s) Eyes Eyes: Denies change in vision or diplopia ENT ENT ED: Reports nasal congestion, tinnitus and vertigo; Denies hearing loss, rhinorrhea or sore throat Cardiovascular Cardiovascular: Denies chest pain or palpitations Respiratory/Chest Respiratory/Chest: Denies cough or dyspnea Gastrointestinal Gastrointestinal: Reports diarrhea, nausea and vomiting; Denies abdominal pain Genitourinary Genitourinary ED: Denies dysuria or hematuria Musculoskeletal Musculoskeletal: Denies back pain or neck pain Integumentary Denies abscess or rash Neurologic Neurologic: Reports as per HPI, headache(s) and vertigo; Denies paresthesias or weakness Psychiatric Psychiatric: Reports anxiety; Denies suicidal thoughts EXAM Physical Exam Const Vital Signs: 01/29/23 10:07 01/29/23 10:17 01/29/23 10:20 Temperature 97.6 F L Temperature Source Temporal Pulse Rate 66 60 Respiratory Rate 14 Respiratory Effort Normal Non-Labored Respiratory Pattern Normal Blood Pressure 158/88 H Blood Pressure Mean 111 Pulse Ox 96 Oxygen Delivery Method Room Air Positive well nourished and well developed General Appearance ED: well developed and NAD HEENT Reports moist mucous membranes HEENT Narrative: Significant EAC cerumen but EACs are otherwise unremarkable. I can see part of the TM on the left which is unremarkable but the right is occluded by cerumen. No discomfort with manipulating the tragus or the pinna. No signs of mastoiditis or tenderness there. normocephalic and atraumatic Eyes PERRL and EOMs intact bilaterally Eyes Narrative: No pathologic horizontal nystagmus, no vertical or rotatory nystagmus. Neck full ROM, no lymphadenopathy and supple Resp normal respiratory effort and clear to auscultation bilaterally Cardio regular rate, regular rhythm and no murmurs GI non-tender and non-distended Auscultation: normoactive bowel sounds Palpation: soft Back/Spine no CVA tenderness General Back: other FROM Extremity normal to inspection General Extremety ED: Negative for edema, pulses abnormal or tenderness General Extremity: Negative for edema or pulses abnormal Neuro oriented x3, CN's II-XII intact bilaterally and no sensory deficits noted Neuro Narrative: Abnormal jolt test. Significantly symptomatic with attempting Dari-Hallpike to the right and patient requests to sit up immediately. Normal [id number] and [id number] bilaterally. Sensorium / Orientation: awake and alert Motor Exam: strength 5/5 throughout Psych Mood & Affect: anxious and tearful Skin no rashes or lesions noted and no wounds MDM MDM MDM Narrative Medical decision making narrative: All consistent with peripheral vertigo. I discussed with the patient the differential which includes vestibulitis, BPPV, and M?ni?re's disease, this is not an exclusive list. Supportive care advised along with outpatient follow-up with ENT if her symptoms do not resolve by 1 week, she is comfortable with that plan. Nursing did a protocol EKG because the patient initially said she was lightheaded/dizzy, but this is all vertiginous. EKG is normal. I do not think she needs any further work-up right now. Rhythm Strip Rhythm Strip: Sinus Rhythm Rate: 65 Ectopy: None EKG Initial EKG: Attestation: I personally reviewed and interpreted this EKG as follows: Interpretation: Sinus Rhythm and No Acute Injury Pattern Comments: Normal EKG Discharge Plan Triage Chief Complaint: Dizziness Other Complaint: Nausea/Vomiting ED Provider: Eric Maria Dx/Rx/DC Orders Clinical Impression: Peripheral vertigo, unspecified, Anxiety Instructions: ED BPV Vertigo, ED Vertigo, Unspecified Prescriptions: New meclizine [meclizine] 25 mg tablet 25 mg PO Q8H PRN PRN (Reason: Dizziness) Qty: 20 0RF ondansetron [ondansetron] 4 mg tablet,disintegrating 8 mg PO Q8H PRN PRN (Reason: Nausea) Qty: 20 0RF No Action Humalog U-100 Insulin 100 UNIT/ML cartridge 0 unit SQ UD Hold Instructions: Hold until insulin pump is fixed Label Comments: IN PUMP lisinopril 5 MG tablet 5 mg PO DAILY Label Comments: albuterol sulfate 1 PUFF inhaler 1 - 2 puff INHALATION Q6H PRN (Reason: Sob &/Or Wheezing) pravastatin 40 mg tablet 40 mg PO QHS Label Comments: TAKE 1 TABLET BY MOUTH EVERY DAY fluticasone propionate 50 mcg/actuation spray,suspension 2 spray INTRANASAL DAILY Label Comments: INSTILL TWO (2) SPRAYS IN EACH NOSTRIL ONCE DAILY insulin lispro [Humalog KwikPen Insulin] 100 unit/mL Insulin Pen 8 unit subcut TIDCM 30 Days Qty: 10 0RF insulin lispro [Humalog KwikPen Insulin] 100 unit/mL Insulin Pen See Protocol subcut ACHS Qty: 0 0RF Protocol: 3. Sliding Scale Insulin Med Dosing Condition: 150-189 mg/dl = 1 unit Condition: 190-229 mg/dl = 2 units Condition: 230-269 mg/dl = 3 units Condition: 270-309 mg/dl = 4 units Condition: 310-349 mg/dl = 5 units Condition: 350-399 mg/dl = 6 units Condition: 400-449 mg/dl = 7 units Condition: Greater than 449 call physician Protocol Text: - Use for Total Daily Dose of Insulin 37-55 units - Obsese, infected, or steroid patients MEDIUM DOSING ALGORITHIM Lantus Solostar U-100 Insulin 100 unit/mL (3 mL) Insulin Pen 20 units subcut BID 30 Days Qty: 12 0RF (DME) needle (disp) 25 gauge 25 gauge x 5/8 needle See Rx Instructions .ROUTE .MEDSUPPLY Qty: 1000 0RF Rx Instructions: As directed (DME) pen needle, diabetic 30 gauge x 5/16 needle See Rx Instructions .ROUTE .MEDSUPPLY Qty: 100 0RF Rx Instructions: As directed famotidine [Pepcid] 40 mg tablet 40 mg PO DAILY Qty: 20 0RF Primary Care Provider: Darlene Bass Referrals: Black Mendes MD [Med Staff - Active Staff] - 1 Week if not improving Darlene Bass MD [Primary Care Provider] - Disposition Disposition: Home, Self Care
[2023-01-29] MEDS: Meclizine HCl 25 MG Tablet PO (10:42)
[2023-01-29] MEDS: Ibuprofen 600 MG Tablet PO (10:43)
[2023-01-29] MEDS: proMETHazine 25 MG Tablet PO (10:43)
== END 2023-01-29 10:53 | disposition home or self-care (01) ==
PROVIDERS: Emergency Provider Emergency Medicine; PCP Family Medicine; Visit Provider Emergency Medicine
DX: H81.399 Other peripheral vertigo, unspecified ear (principal); E11.9 Type 2 diabetes mellitus without complications; Z79.4 Long term (current) use of insulin; R11.2 Nausea with vomiting, unspecified; I10 Essential (primary) hypertension; F17.210 Nicotine dependence, cigarettes, uncomplicated; F41.9 Anxiety disorder, unspecified; Z79.899 Other long term (current) drug therapy; J45.909 Unspecified asthma, uncomplicated; Z90.710 Acquired absence of both cervix and uterus
CPT/HCPCS: 93005; 99284; A4216

== ENCOUNTER 2024-11-17 13:07 | Emergency (ER) | payer MEDICAID, SELFPAY ==
[2024-11-17 13:08] VITALS: BP 167/112; PULSE 79; RESP 16; TEMP 36.8; O2SAT 95; BMI 23.1
--- NOTE | 2024-11-17 13:25 | CT_ITS ---
PROCEDURE: ABDOMEN/PELVIS WITHOUT CONT (CTABDPEL), 11/17/2024 REASON FOR EXAM: RIGHT FLANK PAIN TECHNIQUE: CT abdomen and pelvis was performed without IV contrast. Multiplanar reformats were generated. RADIATION DOSE SUMMARY: CTDlvol: 5.16 mGy DLP: 225.88 mGycm One or more dose reduction techniques were used (e.g., Automated exposure control, adjustment of the mA and/or kV according to patient size, use of iterative reconstruction technique). COMPARISON: None. FINDINGS: Note that evaluation of the abdominopelvic viscera, vasculature, and remaining soft tissues is limited in the absence of IV contrast. Lung bases: Unremarkable. Liver: Unremarkable. Spleen: Unremarkable. Gallbladder: Cholecystectomy. Pancreas: Unremarkable. Adrenals: Unremarkable. Kidneys: Lobulated RIGHT renal contours with likely multifocal cortical scarring. Difficult to trace portions of the ureters. No hydronephrosis or definite ureteral calculus. Bowel: Unremarkable. Normal caliber appendix. Lymph nodes: Unremarkable. Vasculature: Mild atherosclerosis. Peritoneum: Unremarkable. Bladder: Underdistended and suboptimally evaluated, grossly unremarkable. Reproductive Organs: Uterus is not well seen and is probably surgically absent.. Body Wall: Unremarkable. Bones: Unremarkable. CT/Abdomen/Pelvis without Cont IMPRESSION: 1. No acute noncontrast findings. No hydronephrosis or definite ureteral calcu david. 2. Additional description as above. Reading Location: [facility]
--- NOTE | 2024-11-17 13:27 | EX.ED.DYSGE1 ---
HPI History of Present Illness Chief Complaint: Flank Pain Informant: patient Onset/Context/Timing Onset: Days (3) Context: Gradual Onset Timing: Continuous Quality: Sharp, stabbing, aching Location: Right flank Worsened by: Nothing Relieved by: Curling in the position Narrative Narrative: Patient presents with right flank pain that has been getting worse over the past 3 days. Patient describes it as aching, and stabbing. Patient states it is over the right flank area. Patient states it is better when she curls up in a position. Patient states nothing makes it worse. Patient admits to some burning with urination but denies any hematuria or frequency. Patient denies any fevers or chills. Patient denies any nausea or vomiting. Patient went to urgent care today. Patient states that they did a urinalysis there which was normal and referred her to the emergency department for possible kidney stone. [facility] Medical History (Updated 11/17/24 @ 14:[address] Alec Bland, DO) Dizziness Substance abuse Anxiety Depression Migraines Bipolar disorder Asthma Diabetes Hypertension Home Medications ?Medication ?Instructions ?Recorded ?Last Taken ?Type insulin lispro 100 unit/mL 0 unit SQ UD diabetes 01/19/16 12/16/20 History subcutaneous cartridge (Humalog U-100 Insulin) Held on 12/17/20. Instructions: Hold until insulin pump is fixed lisinopril 5 mg tablet 5 mg PO DAILY 01/06/17 Unknown History albuterol sulfate 90 mcg/actuation 1 - 2 puff inhalation Q6H PRN Sob 10/20/20 Unknown History aerosol inhaler &/Or Wheezing fluticasone propionate 50 2 spray intranasal DAILY SEASONAL 12/16/20 Unknown History mcg/actuation nasal ALLERGIES spray,suspension pravastatin 40 mg tablet 40 mg PO QHS 12/16/20 Unknown History insulin glargine 100 unit/mL (3 20 units subcut BID 30 days #12 mL 12/17/20 Unknown Rx mL) subcutaneous pen (Lantus Solostar U-100 Insulin) insulin lispro 100 unit/mL 8 unit (0.08 mL) subcut TIDCM 30 12/17/20 Unknown Rx subcutaneous pen (Humalog KwikPen days #10 mL (U-100) Insulin) insulin lispro 100 unit/mL See Protocol subcut ACHS #0 mL 12/17/20 Unknown Rx subcutaneous pen (Humalog KwikPen (U-100) Insulin) needle (disp) 25 gauge 25 gauge x #1,000 ea 12/18/20 Unknown Rx 5/8 pen needle, diabetic 30 gauge x #100 ea 12/18/20 Unknown Rx 5/16 famotidine 40 mg tablet (Pepcid) 40 mg PO DAILY #20 tabs 10/28/21 Unknown Rx meclizine 25 mg tablet 25 mg PO Q8H PRN PRN Dizziness #20 01/29/23 Unknown Rx tabs ondansetron 4 mg disintegrating 8 mg (2 x 4 mg) PO Q8H PRN PRN 01/29/23 Unknown Rx tablet Nausea #20 tabs hydrocodone-acetaminophen 5-325mg 1 tab PO Q6H PRN PRN Pain 3 days 11/17/24 Unknown Rx 5mg-325mg #10 TABLETS Allergy/AdvReac Type Severity Reaction Status Date / Time latex Allergy Hives Verified 11/17/24 13:11 naproxen Allergy Hives Verified 11/17/24 13:11 oseltamivir phosphate (From AdvReac Other Verified 11/17/24 13:11 Tamiflu) Family History Other Diabetes Leukemia Thyroid disorder Surgical History (Updated 11/17/24 @ 14:[address] Alec Bland DO) History of tonsillectomy and adenoidectomy History of endometrial ablation Hx of cholecystectomy Hx of tubal ligation History of partial hysterectomy Social History (Updated 11/17/24 @ 14:[address] Alec Bland DO) adopted: No household members: family housing: house Smoking Status: Current every day smoker tobacco type: cigarettes Electronic Cigarette Use: with nicotine alcohol intake: current alcohol intake frequency: holidays/special occasions only substance use type: marijuana ROS ROS ED Constitutional Constitutional ED: Denies chills or fever(s) Eyes Eyes: Denies blurry vision or change in vision ENT ENT ED: Denies rhinorrhea or sore throat Cardiovascular Cardiovascular: Denies chest pain or palpitations Respiratory/Chest Respiratory/Chest: Denies cough or dyspnea Gastrointestinal Gastrointestinal: Denies nausea or vomiting Genitourinary Genitourinary ED: Reports dysuria; Denies hematuria Musculoskeletal Musculoskeletal: Reports back pain; Denies neck pain Integumentary Denies abscess or rash Neurologic Neurologic: Denies headache(s) or weakness Allergic/Immunologic Allergic/Immunologic ED: Denies mouth swelling or urticaria EXAM Physical Exam Const Vital Signs: 11/17/24 13:08 Temperature 98.3 F Temperature Source Oral Pulse Rate 79 Respiratory Rate 16 Blood Pressure 167/112 H Blood Pressure Mean 130 Pulse Ox 95 Oxygen Delivery Method Room Air Positive well nourished and well developed General Appearance ED: well developed and NAD HEENT Reports moist mucous membranes Neck supple and no JVD Resp normal respiratory effort and clear to auscultation bilaterally Cardio regular rate and regular rhythm GI non-tender and non-distended Palpation: soft Back/Spine General Back: CVA tenderness right Neuro oriented x3, CN's II-XII intact bilaterally and no sensory deficits noted Sensorium / Orientation: alert Motor Exam: strength 5/5 throughout Psych mental status grossly normal MDM MDM MDM Narrative Medical decision making narrative: Differential diagnosis includes ureteral calculus, electrolyte abnormality, dehydration, and ovarian cyst. CBC will be obtained to assess for leukocytosis and anemia. Basic metabolic profile will be obtained to assess for electrolyte abnormality and renal function. CT scan of the abdomen and pelvis will be obtained to assess for ureteral calculus and ovarian cyst. Lab Data Attestation: I reviewed the patient's lab results. Lab results narrative: CBC was reviewed and was essentially within normal limits. Basic metabolic profile was reviewed and was within normal limits. Labs: Laboratory Results - last 24 hr 11/17/24 13:35 WBC 5.5 RBC 4.19 L Hgb 13.0 Hct 38.4 MCV 91.6 MCH 31.0 MCHC 33.9 RDW Std Deviation 41.1 RDW Coeff of Kenan 12.4 Plt Count MPV 12.0 Immature Gran % (Auto) 0.200 Neut % (Auto) 39.1 L Lymph % (Auto) 47.3 H [place] % (Auto) 6.8 Eos % (Auto) 5.1 H Baso % (Auto) 1.5 H Absolute Neuts (auto) 2.1 Absolute Lymphs (auto) 2.58 Nucleated RBC % 0 Platelet Estimate ADEQUATE Sodium 140 Potassium 4.3 Chloride 106 Carbon Dioxide 22.7 Anion Gap 11 BUN 7 Creatinine 0.70 Estim Creat Clear Calc 81.96 Est GFR (MDRD) Non-Af 110 BUN/Creatinine Ratio 10.5 Glucose 102 H Calcium 9.1 Radiography Diagnostic Testing: Clinical Impression(s) from Imaging Studies Abdomen/Pelvis CT 11/17/24 13:25 IMPRESSION: 1. No acute noncontrast findings. No hydronephrosis or definite ureteral calculus. 2. Additional description as above. Reading Location: [facility] CT scan of the abdomen pelvis was obtained. There are no acute findings noted. There is no hydronephrosis or ureteral calculus. There is no evidence of bowel obstruction or perforation. There is no free air or free fluid. This was interpreted by the radiologist and was also independently reviewed by myself. Treatment and Re-Evaluation :: Patient was given IV fluids, morphine, and Zofran. Patient was advised of her findings. Patient was instructed to follow-up with her primary care physician in 5 to 7 days for further evaluation. Patient understood and was agreeable with the plan. All questions were answered. Discharge Plan Triage Chief Complaint: Flank Pain ED Provider: Alec Blnad Dx/Rx/DC Orders Clinical Impression: Acute right flank pain, Type I diabetes mellitus Instructions: ED Flank Pain, Uncertain Cause Prescriptions: New hydrocodone-acetaminophen 5-325 mg tablet 1 tab PO Q6H PRN PRN (Reason: Pain) 3 Days Qty: 10 0RF No Action Humalog U-100 Insulin 100 UNIT/ML cartridge 0 unit SQ UD Patient Comments: IN PUMP lisinopril 5 MG tablet 5 mg PO DAILY Patient Comments: albuterol sulfate 1 PUFF inhaler 1 - 2 puff INHALATION Q6H PRN (Reason: Sob &/Or Wheezing) pravastatin 40 mg tablet 40 mg PO QHS Patient Comments: TAKE 1 TABLET BY MOUTH EVERY DAY fluticasone propionate 50 mcg/actuation spray,suspension 2 spray INTRANASAL DAILY Patient Comments: INSTILL TWO (2) SPRAYS IN EACH NOSTRIL ONCE DAILY insulin lispro [Humalog KwikPen Insulin] 100 unit/mL Insulin Pen 8 unit subcut TIDCM 30 Days Qty: 10 0RF insulin lispro [Humalog KwikPen Insulin] 100 unit/mL Insulin Pen See Protocol subcut ACHS Qty: 0 0RF Protocol: 3. Sliding Scale Insulin Med Dosing Condition: 150-189 mg/dl = 1 unit Condition: 190-229 mg/dl = 2 units Condition: 230-269 mg/dl = 3 units Condition: 270-309 mg/dl = 4 units Condition: 310-349 mg/dl = 5 units Condition: 350-399 mg/dl = 6 units Condition: 400-449 mg/dl = 7 units Condition: Greater than 449 call physician Protocol Text: - Use for Total Daily Dose of Insulin 37-55 units - Obsese, infected, or steroid patients MEDIUM DOSING ALGORITHIM Lantus Solostar U-100 Insulin 100 unit/mL (3 mL) Insulin Pen 20 units subcut BID 30 Days Qty: 12 0RF (DME) needle (disp) 25 gauge 25 gauge x 5/8 needle See Rx Instructions .ROUTE .MEDSUPPLY Qty: 1000 0RF Rx Instructions: As directed (DME) pen needle, diabetic 30 gauge x 5/16 needle See Rx Instructions .ROUTE .MEDSUPPLY Qty: 100 0RF Rx Instructions: As directed famotidine [Pepcid] 40 mg tablet 40 mg PO DAILY Qty: 20 0RF meclizine [meclizine] 25 mg tablet 25 mg PO Q8H PRN PRN (Reason: Dizziness) Qty: 20 0RF ondansetron [ondansetron] 4 mg tablet,disintegrating 8 mg PO Q8H PRN PRN (Reason: Nausea) Qty: 20 0RF Primary Care Provider: Darlene Bass Referrals: Darlene Bass MD [Primary Care Provider] - 5-7 Days Print Language: Citizen Of [place] Disposition Disposition: Home, Self Care
[2024-11-17] MEDS: 0.9% Normal Saline (1000mL) 1,000 ML 1000 ML IV (13:40)
[2024-11-17] MEDS: Morphine 4 MG/ML Syringe IV (13:40)
[2024-11-17] MEDS: Ondansetron 4 MG/2 ML Vial IV (13:40)
[2024-11-17 13:56] LABS: Absolute Lymphocyte Count 2.58 X10^3/uL (0.83-4.51); Absolute Neutrophil Count 2.1 X10^3/uL (2.0-7.7); Basophil# 0.08 X10^3/uL; Basophil% 1.5 % (0-1); Eosinophil# 0.28 X10^3/uL; Eosinophils% 5.1 % (0-5); Hematocrit 38.4 % (37-47); Lymphocyte # 2.58 X10^3/ul (0.83-4.51); Lymphocyte % 47.3 % (19-41); Mean Corp Hgb Conc 33.9 g/dL (32-36); Mean Corpuscular Volume 91.6 fL (81-99); Monocyte# 0.37 X10^3/uL; Monocyte% 6.8 % (0-10); NRBC Flagged by Analyzer 0 % (0-5); Neutrophil # 2.14 X10^3/uL (2.7-7.7); Neutrophil % 39.1 % (47-70); POSITIVE COUNT YES; RBC Distribution Width CV 12.4 % (11.6-14.6); RBC Distribution Width SD 41.1 fl (35.1-43.9); Red Blood Count 4.19 M/mm3 (4.2-5.4); White Blood Count 5.5 K/mm3 (4.4-11.0)
[2024-11-17 14:19] LABS: Differential Indicated SCAN CRITERIA MET; Platelet Estimate ADEQUATE (ADEQ)
[2024-11-17 14:22] LABS: Anion Gap 11 (5-15); BUN 7 mg/dL (4-19); BUN/Creat Ratio 10.5 RATIO (10-20); Calcium,Total 9.1 mg/dL (7.6-11.0); Carbon Dioxide 22.7 mmol/L (21.0-32.0); Chloride 106 mmol/L (98-108); EST Glomerular Filtration Rate 110 (>60); Estimated Creatinine Clearance 81.96 ml/min (50-250); Glucose 102 mg/dL (70-99); Potassium 4.3 mmol/L (3.3-5.1); Sodium Level 140 mmol/L (133-145)
[2024-11-17 15:02] VITALS: PULSE 52; RESP 18; TEMP 36.6
== END 2024-11-17 15:06 | disposition home or self-care (01) ==
PROVIDERS: Emergency Provider Emergency Medicine; PCP Family Medicine; Visit Provider Emergency Medicine
DX: R10.9 Unspecified abdominal pain (principal); E10.9 Type 1 diabetes mellitus without complications; Z79.4 Long term (current) use of insulin; I10 Essential (primary) hypertension; F17.210 Nicotine dependence, cigarettes, uncomplicated; F12.90 Cannabis use, unspecified, uncomplicated; Z98.51 Tubal ligation status; Z90.49 Acquired absence of other specified parts of digestive tract; Z90.710 Acquired absence of both cervix and uterus; J45.909 Unspecified asthma, uncomplicated
CPT/HCPCS: 74176; 80048; 85025; 96361; 96374; 96375; 99282; J2405